=== PATIENT | female | born 1990 | race Caucasian/White ===

== ENCOUNTER 2019-10-20 14:09 | Emergency (ER) | payer OTHER, SELFPAY ==
[2019-10-20 14:22] VITALS: BP 139/79; PULSE 69; RESP 16; TEMP 36.2; O2SAT 100
--- NOTE | 2019-10-20 14:39 | ED.SKABFB ---
HPI - Skin/Abscess/Foreign Bdy General Chief complaint: Skin/Abscess/Foreign Body Stated complaint: Cyst Time Seen by Provider: 10/20/19 14:39 Source: patient and RN notes reviewed Mode of arrival: ambulatory Limitations: no limitations History of Present Illness HPI narrative: This is a 29 years old female presents to the office for an evaluation of painful lesion on vaginal area. She noticed a small bump a week ago and it gets more painful for the last couple days. Pain is worse today that she could barely walk. Denies similar problem in the past. She tried warm compress on affected area; but she could barely put it on because it was too irritated/painful. Denies history MRSA.Denies concerns for STIs. Related Data Allergies Allergy/AdvReac Type Severity Reaction Status Date / Time No Known Allergies Allergy Verified 08/11/18 16:48 Review of Systems Review of Systems: Narrative: CONSTITUTIONAL: Denies fever, chills CARDIOVASCULAR: Denies chest pain RESPIRATORY: Denies dyspnea, cough GASTROINTESTINAL: Denies abdominal pain,vomiting, diarrhea. Reports feeling nausea. GENITOURINARY: Denies urinary symptoms or vaginal discharge SKIN: Reports painful bumps on her vagina MUSCULOSKELETAL: Denies acute joints pain NEUROLOGIC: Denies lightheaded All other systems reviewed are negative, except as documented in HPI. PMFSH Past Medical History Medical History Depression Family History Family History Other Diabetes mellitus Hypertension Social History Social History Smoking status: Never smoker Alcohol intake: never Comments At time of signature, I agree with nursing past medical, surgical, social and family history. There is no relevant family history pertinent to the presenting complaint. Exam Narrative: Exam Narrative: GENERAL: This is a well-nourished, well-developed patient, in no apparent distress. CARDIOVASCULAR: Regular rate and rhythm without murmurs, gallops, or rubs. RESPIRATORY: Clear to auscultation. Breath sounds equal bilaterally. No wheezes, rales, or rhonchi. GASTROINTESTINAL: Abdomen soft, non-tender, nondistended. Bowel sounds are active. No hepato-splenomegaly, or palpable masses. No guarding. 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 NEURO: awake, alert, and oriented to person, place and time. There were no obvious focal neurologic abnormalities. Steady gait Juliet Coma Scale Eye Opening: Spontaneous 4 [place] Coma Scale Motor: Obeys Commands 6 [place] Coma Scale Verbal: Oriented 5 Course Vital Signs Vital signs: Vital Signs Temperature 97.2 F L 10/20/19 14:22 Pulse Rate 69 10/20/19 14:22 Respiratory Rate 16 10/20/19 14:22 Blood Pressure 139/79 10/20/19 14:22 Pulse Oximetry 100 10/20/19 14:22 Temperature 97.2 F L 10/20/19 14:22 Pulse Rate 69 10/20/19 14:22 Respiratory Rate 16 10/20/19 14:22 Blood Pressure 139/79 10/20/19 14:22 Pulse Oximetry 100 10/20/19 14:22 MDM - Skin/Abscess/Foreign Bdy MDM Narrative Medical decision making narrative: Discharge instructions reviewed with patient, as well as provided in writing per nursing staff. The instructions also include specific and strict return/GO TO THE ER as well as f/u information. All questions have been answered, and the patient deny any further questions with discharge and discharge plan. Differential Diagnosis Differential diagnosis: Likely abscess of skin or subcutaneous tissue, cellulitis, insect bites and contact dermatitis Critical Care Time Critical Care Time Critical Care Time: No Discharge Plan Discharge Clinical Impression: Abscess of left Bartholin's gland Patient Disposition: Home, Self-Care Condition:
== END 2019-10-20 14:58 | disposition home or self-care (01) ==
PROVIDERS: Emergency Provider Nurse Practitioner; PCP Emergency Medicine
DX: N75.1 Abscess of Bartholin's gland (principal)
CPT/HCPCS: 99213; G0463

== ENCOUNTER 2019-12-12 09:20 | Outpatient (CLI) | payer OTHER, SELFPAY ==
--- NOTE | ~2019-12-12 | XR_ITS ---
XR foot RT 2V DATE: 12/12/2019 09:41 INDICATION: Right foot pain TECHNIQUE: AP and lateral views COMPARISON: None FINDINGS: There is mild osteophyte is at the first metatarsophalangeal joint, including moderate join t space narrowing, minimal spurring. No fracture or dislocation, periosteal reaction or bone destruction. IMPRESSION: Mild osteoarthritis at first metatarsophalangeal joint Reviewed, dictated and finalized at location A.
--- NOTE | ~2019-12-12 | XR_ITS ---
XR foot LT 2V DATE: 12/12/2019 09:41 INDICATION: Right foot pain. No injury. TECHNIQUE: AP and lateral views COMPARISON: None FINDINGS: No fracture or dislocation, periosteal reaction or bone destruction. Joint spaces are prese rved. IMPRESSION: Negative Reviewed, dictated and finalized at location A. IMPRESSION: Negative
== END 2019-12-12 09:21 | disposition home or self-care (01) ==
LOC: ANHIMG 09:23
PROVIDERS: PCP Emergency Medicine; Visit Provider Emergency Medicine
DX: M79.672 Pain in left foot (principal); M19.071 Primary osteoarthritis, right ankle and foot
CPT/HCPCS: 73620

== ENCOUNTER 2020-02-28 12:23 | Emergency (ER) | payer OTHER, SELFPAY ==
--- NOTE | ~2020-02-28 | XR_ITS ---
EXAMINATION: XR ankle RT 2V DATE: 02/28/2020 12:50 INDICATION: Right ankle deformity post fall down stairs TECHNIQUE: Anteroposterior and lateral views of the affected ankle were obtained. COMPARISON: None. FINDINGS: Comminuted fracture of the distal right fibular metadiaphyseal region with a dominant oblique fractur e plane which exits the medial cortex approximately 3 cm above level of the tibiotalar joint line. Th ere is one cortical width posterior and lateral displacement and 10 degree lateral and 25 degrees pos terior angulation along this fracture plane. There is an additional nondisplaced fracture line extend ing into the more distal metaphyseal region. There is a displaced fracture fragment arising from the lateral aspect of the distal tibia likely an avulsion of the posterior malleolus. No definite fractur e of the medial malleolus however there is significant posterior and lateral subluxation and varus an gulation of the talar dome relative to the tibial plafond consistent with tear of the deltoid ligamen t complex there is prominent anterior widening of the tibiotalar joint space. No fractures and normal alignment and joint spaces in the visualized right forefoot. IMPRESSION: 1. Displaced and angulated Finn type IIIC injury pattern with comminuted, displaced and angulated fr acture of the distal right fibular metadiaphysis, displaced fracture of the posterior malleolus of th e distal tibia and deltoid ligament complex tear without evident medial malleolar fracture. Reviewed, dictated and finalized at location A. CAL LABORATORY TECHNICIAN IMPRESSION: 1. Displaced and angulated Finn type IIIC injury pattern with comminuted, disp laced and angulated fracture of the distal right fibular metadiaphysis, displac ed fracture of the posterior malleolus of the distal tibia and deltoid ligament complex tear without evident medial malleolar fracture.
--- NOTE | ~2020-02-28 | XR_ITS ---
EXAMINATION: XR ankle LT 2V DATE: 02/28/2020 12:49 INDICATION: Left ankle swelling post fall down stairs TECHNIQUE: Anteroposterior and lateral views of the left ankle were obtained. COMPARISON: None. FINDINGS: Alignment is normal. No fracture. Joint spaces are well maintained. Bone island at the talar dome. N o ankle joint effusion. Mild soft tissue swelling about the lateral malleolus. IMPRESSION: 1. No left ankle joint effusion or acute osseous abnormality. Reviewed, dictated and finalized at location A. ESSOR OF GENETICS
--- NOTE | ~2020-02-28 | XR_ITS ---
EXAMINATION: XR ankle RT 2V DATE: 02/28/2020 13:44 INDICATION: Distal right tibia and fibula fractures status post reduction. TECHNIQUE: 2 views of right ankle were obtained. COMPARISON: Right ankle radiographs at 12:39 PM FINDINGS: There is a comminuted fracture of distal fibular diaphysis with proximal medial aspect of t he fracture line 4.8 cm proximal to the level of the tibial plafond. The main distal fracture fragmen t demonstrates 2 mm posterior displacement and 6 degrees anterior angulation. There is a fracture of posterior malleolus in near-anatomic alignment. There is widening of the medial ankle mortise, consis tent with deltoid ligament tear. Joint spaces are normal. Cast material obscures fine bone detail. IMPRESSION: 1. Fractures of distal fibula and posterior malleolus with improvement in alignment. 2. Complete tear of the deltoid ligament. Reviewed, dictated and finalized at location A. UNITY REINVESTMENT ACT OFFICER IMPRESSION: 1. Fractures of distal fibula and posterior malleolus with improvement in align ment. 2. Complete tear of the deltoid ligament.
[2020-02-28 12:33] VITALS: BP 132/90; PULSE 79; RESP 18; O2SAT 99
[2020-02-28] MEDS: SODIUM CHLORIDE 0.9% IV 1,000 ML 999 ML IV CONT (13:04)
[2020-02-28] MEDS: ONDANSETRON INJ 4 MG/2 ML VIAL IV PUSH (13:04)
[2020-02-28] MEDS: MORPHINE SULFATE (*CRX) 4 MG/ML INJ IV PUSH (13:05)
--- NOTE | 2020-02-28 13:14 | ED.LOWEXIN ---
HPI - Extremity Injury (Lower) General Chief Complaint: Extremity Injury, Lower Stated Complaint: broken leg Time Seen by Provider: 02/28/20 12:37 History of Present Illness HPI Narrative: Patient is a 29-year-old female who presents ER with right ankle deformity. She was walking down some steps helping her sister move when she stepped down wrong suffering injury to her ankle. Sudden onset pain with deformity. She reports some tingling but does continue to have sensation. Unable to bear weight. Did not strike her head or lose consciousness. No additional injuries. Related Data Home Medications Medication Instructions Recorded Confirmed meloxicam 15 mg tablet 15 mg PO DAILY 01/29/20 Allergies Allergy/AdvReac Type Severity Reaction Status Date / Time No Known Allergies Allergy Verified 02/28/20 12:36 Review of Systems Constitutional: Constitutional: Denies chills, Denies fever(s) and Denies weakness Musculoskeletal: Musculoskeletal: Reports arthralgias and Reports joint swelling Neurologic: Denies focal weakness and Reports numbness PMFSH Past Medical History Medical History (Updated 02/28/20 @ 14:01 by Santi Knox MD) Depression Family History Family History Other Diabetes mellitus Hypertension Social History Social History Smoking status: Never smoker Alcohol intake: never Exam Narrative: Exam Narrative: GENERAL: Well-appearing, well-nourished, and in no acute distress. HEAD: Normocephalic, atraumatic. HEART: Regular rate and rhythm. No murmur heard. Normal peripheral pulses. EXTREMITIES: Right ankle deformity and swelling. Normal dorsalis pedis pulses and sensation intact. No tenderness about the knee. SKIN: Warm, dry, no rash. NEURO: No focal deficits. Alert and oriented x3. PSYCH: Normal mood and affect. Course Course Emergency Course: Discussed case with Dr. Robbins. He would like patient to follow-up outpatient and he will arrange surgery for her at [facility] has this is a complex type fracture. Patient will be nonweightbearing and will keep her leg elevated. She has been educated about treatment plan and verbalized understanding. Vital Signs Vital signs: Vital Signs Pulse Rate 79 02/28/20 12:33 Respiratory Rate 18 11/27/20 12:33 Blood Pressure 132/90 11/27/20 12:33 Pulse Oximetry 99 02/28/20 12:33 Pulse Rate 79 02/28/20 12:33 Respiratory Rate 18 02/28/20 12:33 Blood Pressure 132/90 02/28/20 12:33 Pulse Oximetry 99 02/28/20 12:33 Procedures Orthopedic Fracture Reduction Fracture #1: Fracture Reduction date: 02/28/20 Fracture Reduction time: 13:20 Side: right Fracture Reduction Location: other (ankle) Pre-Procedure Neuro Vascular Exam: normal Technique: direct manipulation Post-reduction neuro exam: intact Post-reduction vascular exam: intact Splint Applied: Yes Patient Tolerated Procedure: well Orthopedic Splinting/Casting Injury #1: Splinting/Casting Date: 02/28/20 Splinting/Casting Time: 13:24 Side: right Lower Extremity Injury Location: ankle Splint: customized in ED OCL: stirrup Pre-Procedure Neuro Vascular Exam: normal Post-Procedure Neuro Vascular Exam: normal MDM - Extremity Injury (Lower) Imaging Data My impression: ITS Impressions Ankle X-Ray 02/28/20 13:12 IMPRESSION: 1. No left ankle joint effusion or acute osseous abnormality. Ankle X-Ray 02/28/20 13:14 IMPRESSION: 1. Displaced and angulated Finn type IIIC injury pattern with comminuted, displaced and angulated fracture of the distal right fibular metadiaphysis, displaced fracture of the posterior malleolus of the distal tibia and deltoid ligament complex tear without evident medial malleolar fracture. Discharge Plan Di
[2020-02-28] MEDS: HYDROmorphone HCL INJ (*CRX) 1 MG/ML SYR IV PUSH (13:26)
== END 2020-02-28 14:56 | disposition home or self-care (01) ==
PROVIDERS: Emergency Provider Emergency Medicine; PCP Emergency Medicine
DX: S89.391A Other physeal fracture of lower end of right fibula, initial encounter for closed fracture (principal); S82.391A Other fracture of lower end of right tibia, initial encounter for closed fracture; X50.9XXA Other and unspecified overexertion or strenuous movements or postures, initial encounter
CPT/HCPCS: 27788; 27825; 73600; 96365; 96366; 96375; 99285; J0131; J1170; J2270; J2405; J7030

== ENCOUNTER 2020-03-04 01:04 | Outpatient (CLI) | payer OTHER, SELFPAY ==
[2020-03-04 18:21] LABS: SARS-CoV-2 RNA PCR Negative
== END 2020-03-04 01:05 | disposition home or self-care (01) ==
LOC: ANHCOVIDDT 01:06
PROVIDERS: PCP Emergency Medicine; Visit Provider Orthopaedic Surgery
DX: Z01.818 Encounter for other preprocedural examination (principal); Z20.828 Contact with and (suspected) exposure to other viral communicable diseases
CPT/HCPCS: 87635; C9803; U0003

== ENCOUNTER 2020-03-05 01:24 | Day surgery (SDC) | payer OTHER, SELFPAY ==
[2020-03-03 13:05] VITALS: BMI 33.8
[2020-03-05] VITALS (10 sets, daily range): BP systolic 133–159; BP diastolic 72–98; PULSE 75–92; RESP 14–20; TEMP 36.7–36.9; O2SAT 99–100
--- NOTE | ~2020-03-05 | XR_ITS ---
EXAMINATION: XR surgery orthopedic DATE: 03/05/2020 15:22 INDICATION: ORIF right ankle fracture TECHNIQUE: 3 fluoroscopic spot images of the right ankle were obtained during procedure performed by Dr. Robbins. Radiologist was not present for the imaging or procedure. The amount of fluoroscopy time us ed during this procedure was 0.7 minutes. COMPARISON: 02/28/2020 FINDINGS: Interval open reduction and internal fixation of the wrist noted comminuted fractures of the distal r ight fibular metadiaphysis with lateral plate and screws. This includes a syndesmotic fixation device with anchoring screws at the lateral side of the distal right tibial metaphysis. Alignment is near-a natomic with one cortical width residual posterior displacement and negligible anterior angulation of the fibular fracture and with a congruent ankle mortise. No other fractures identified. IMPRESSION: 1. Near-anatomic alignment post open reduction and internal fixation of a comminuted extra articular fracture of the distal right fibula with associated syndesmotic fixation. Reviewed, dictated and finalized at location A. MAKER IMPRESSION: 1. Near-anatomic alignment post open reduction and internal fixation of a commi nuted extra articular fracture of the distal right fibula with associated synde smotic fixation.
[2020-03-05] MEDS: LACTATED RINGERS 1,000 ML 30 ML IV CONT ×2 (12:56→15:38)
[2020-03-05] MEDS: ACETAMINOPHEN 500 MG TABLET 1000 MG PO (13:10)
[2020-03-05] MEDS: KETOROLAC 15 MG/ML VIAL (*BKC) IV PUSH (13:11)
--- NOTE | 2020-03-05 13:13 | SUR.PREOP ---
1313-DR. CHIRINOS AT [facility], [facility] LEAVE SPLINT/DONATO ON TO OR.
--- NOTE | 2020-03-05 13:27 | WPDANESEPPF ---
Anes - Initial Pre Proc Eval Procedure: Operation Date: 03/05/20 14:00 Proposed Procedures p Open Reduction Internal Fixation Right Ankle Fracture - Redd Robbins MD Date/Time: 03/05/20 13:27 Surgeon: Redd Robbins MD Pre Op Diagnosis: Right Ankle Fracture Patient Data Age: 29 Gender: F Height: 5 ft 11 in Weight: 110 kg Allergies Allergy/AdvReac Type Severity Reaction Status Date / Time No Known Allergies Allergy Verified 03/05/20 12:53 Home Medications Medication Instructions Recorded Confirmed Type alprazolam 0.5 mg tablet 0.5 mg PO BID PRN #30 tablet 12/02/19 03/05/20 Rx bupropion HCl 150 mg 24 hr tablet, 150 mg PO QAM #30 tablet 12/02/19 03/05/20 Rx extended release hydrocortisone 2.5 % topical cream 1 applic PA BID-TID PRN 7 Days #30 01/29/20 03/03/20 Rx with perineal applicator g meloxicam 15 mg tablet 15 mg PO DAILY 01/29/20 03/05/20 History hydrocodone-acetaminophen 1 tablet PO Q6H PRN #20 tablet 02/28/20 03/05/20 Rx sertraline 100 mg PO QAM 03/03/20 03/05/20 History Patient hx anesthesia problems: none Family hx anesthesia problems: none PMFSH Past Medical History Medical History BMI 37.0-37.9, adult Depression Surgical History Surgical History H/O: section H/O: hysterectomy History of cholecystectomy Family History Family History Other Diabetes mellitus Heart disease Hypertension Social History Social History Smoking status: Never smoker Alcohol intake: current Drinks per week: 2 Substance use: never Living arrangements: alone Gender identity (if verbalized by the patient): Female Spiritual care concerns: No Anes - Eval Final PreProcedure Day of Procedure 03/05/20 13:27 Patient weight: obese Heart: regular rate and rhythm Lungs: clear to auscultation Airway: Mallampati scale class II Neurological: alert and oriented Last oral intake: >/= 8 hours ASA classification: II Emergent: no Anesthetic plan: proceed Anesthesia type and monitoring: general LMA and standard monitoring Informed Consent: The patient's anesthetic plan and its attendant risks and benefits were discussed with the patient/family/POA. Questions were solicited and answers provided to the satisfaction of the patient/family/POA.
--- NOTE | 2020-03-05 13:31 | WPDHPUPDATE1 ---
History and Physical Update Update Date/Time: 03/05/20 13:31 History and Physical has been reviewed, including an updated exam of the patient. There are NO changes in the patient's condition. Risks, benefits, and alternatives have been discussed and questions answered. Patient agrees to proceed with procedure.
--- NOTE | 2020-03-05 13:44 | WPDANESPNB ---
Anes - Peripheral Nerve Block Date/Time: 03/05/20 13:44 I have discussed with the patient/family/POA the placement of a peripheral nerve block for post-operative pain management, including associated risks, benefits, complications, and side effects. Alternative methods of post-operative analgesia were detailed. Questions were solicited and answers provided to the satisfaction of the patient/family/POA. Time-Out: A pre-procedural Time-Out was completed immediately before starting the procedure and confirmed: Patient Identification, Site, Procedure, Patient Position and the Availability of Requisite Equipment. Clinical Indications: Acute post-operative pain management requested by the operative surgeon. Nerve Block Insertion Note Anes-nerve block: posterior fossa sciatic (lateral popliteal) right and other (saphenous) Patient position: supine Skin prep: chlorhexidine Needle: 22 gauge, stimulating, insulated echogenic needle. Needle length: 120 mm Technique: nerve stimulation lost at (mA) (0.5) Injectate: bupivacaine 0.5% with epi 5 mcg/ml (23 cc sciatic, 7 cc popliteal) Observations: tolerated well Complications: none Procedure start time:: 1325 Procedure end time:: 7
[2020-03-05] MEDS: ceFAZolin 2 GM/D5W 50 ML 2 GM/50 ML BAG IVPB (13:48)
--- NOTE | 2020-03-05 15:56 | PM.PROC ---
Procedure Note - Detailed Date of procedure: 03/05/20 Pre-op diagnosis: Right Ankle Fracture Finn C lateral malleolus fracture with syndesmotic disruption right ankle Post-op diagnosis: same Procedure performed: ORIF right distal fibular shaft fracture with syndesmotic stabilization. Description of procedure: The patient was identified and the proper site identified. She was taken to the operating room after the anesthesia team performed a right lower extremity block. She was positioned on the operating table taking care to pad her torso and extremities. After general anesthetic induction and intubation, a nonsterile tourniquet was placed high on the right thigh. The right lower extremity was prepped and draped in usual sterile fashion. The extremity was exsanguinated and the tourniquet inflated to 300 mmHg remaining up for about 75 minutes. A longitudinal incision was made over the distal fibula. Subcutaneous tissue was dissected sharply full thickness down to the fracture site which was easily identified. The fracture was exposed and cleared of debris. Of note there was quite a bit of soft tissue stripping anteriorly over the tibia. With fluoroscopic assistance the fracture was able to be brought back out to length and held in a reduced position. Because of the fragmentation, this was provisionally stabilized using a 2.0 screw from the mini fragment set. Then a six hole lateral locking ankle plate was contoured to fit the fibular shaft securing it proximally and distally with locking screws giving a nice stabilization to virtually anatomic reduction. The distal screws were inserted under fluoroscopic control to ensure the joint was not penetrated. Next while holding the syndesmosis reduced with a pelvic reduction clamp and with the foot in a neutral to slightly dorsiflexed position, the fibulink device was inserted and tensioned appropriately to give nice stable syndesmosis. This was assessed fluoroscopically. Overall hardware placement was assessed fluoroscopically on the AP, mortise and lateral views and noted to be satisfactory. Talus was reduced in the mortise and the syndesmosis was reduced as well. The wound was irrigated with sterile saline solution. The subcutaneous tissue was reapproximated with three 0 Monocryl suture and then a two of strata fix and conchita were used for the skin. Small puncture made over the medial malleolus was closed with a staple. Sterile dressing was applied and the tourniquet was released. A well-padded stirrup type ankle splint was fashioned. She tolerated the procedure well. She was awakened, extubated, transferred back to a cart taken recovery area in stable condition. There were no known intraoperative complications. Estimated blood loss was about 10 mL. She received perioperative antibiotics. Anesthesia: GLMA Surgeon: Redd Robbins MD Conservation Enforcement Officer: Rafal Martin Estimated blood loss (mL): 10 Tourniquet time (min): 75 Drains: No Packing: No Pathology: none sent Complications: No immediate complications Condition: stable Disposition: PACU
[2020-03-05] MEDS: fentaNYL CITRATE INJ (*CRX) 100 MCG/2 ML VIAL 25 MCG IV PUSH ×2 (16:40→16:43)
--- NOTE | 2020-03-05 16:43 | SUR.PHASEI ---
1635; PT C/O PAIN TO UPPER RT THIGH. RUBBING RT THIGH WHERE OR TOURNIQUET CARPIO ARE. SKIN NORMAL. P,W,D IN THAT AREA.
--- NOTE | 2020-03-05 16:51 | SUR.PHASEI ---
PT AWAKE, STATES RT THIGH MUCH BETTER NOW AT 3/10. READY TO SIT IN RECLINER.
== END 2020-03-05 17:38 | disposition home or self-care (01) ==
PROVIDERS: PCP Emergency Medicine; Visit Provider Orthopaedic Surgery
PROC: (CPT 27829; principal; 2020-03-05 14:00)
DX: S82.61XA Displaced fracture of lateral malleolus of right fibula, initial encounter for closed fracture (principal); S93.431A Sprain of tibiofibular ligament of right ankle, initial encounter; W19.XXXA Unspecified fall, initial encounter; G89.18 Other acute postprocedural pain; F32.9 Major depressive disorder, single episode, unspecified; E66.9 Obesity, unspecified; Z68.35 Body mass index [BMI] 35.0-35.9, adult
CPT/HCPCS: 27829; 27792; 64450; 64445; A9270; C1713; J0690; J1100; J1885; J2250; J2405; J2704; J3010; J7120

== ENCOUNTER 2020-03-06 10:57 | Emergency (ER) | payer OTHER, SELFPAY ==
[2020-03-06 11:25] VITALS: BP 158/90; PULSE 82; RESP 18; TEMP 37.1; O2SAT 99
--- NOTE | 2020-03-06 12:42 | ED.LOWEXIN ---
HPI - Extremity Injury (Lower) General Chief Complaint: Extremity Injury, Lower Stated Complaint: foot post op swelling, reddness Time Seen by Provider: 03/06/20 12:16 Source: patient Mode of arrival: wheelchair Limitations: no limitations History of Present Illness HPI Narrative: Patient is a 29-year-old female complaining of right lower extremity pain, ankle area where she had the surgery, that started today. Patient denies any calf pain or swelling. Patient denies any increased swelling or redness of her right lower extremity. Patient had ankle surgery yesterday done by Dr. Robbins. I discussed the case with Dr. Robbins, he strongly advised not to take the dressing off, and patient can follow-up with him. Patient denies any chest pain, shortness of breath, fever or chills. Related Data Home Medications Medication Instructions Recorded Confirmed meloxicam 15 mg tablet 15 mg PO DAILY 01/29/20 03/05/20 sertraline 100 mg PO QAM 03/03/20 03/05/20 Allergies Allergy/AdvReac Type Severity Reaction Status Date / Time No Known Allergies Allergy Verified 03/06/20 11:27 Review of Systems Review of Systems: All systems reviewed & are unremarkable except as noted in HPI and below Constitutional: Constitutional: Denies body ache(s), Denies chills, Denies excessive sweating, Denies fatigue, Denies fever(s), Denies headache(s), Denies lethargy, Denies malaise, Denies weakness and Denies weight loss Eyes: Eyes: Denies blurry vision, Denies change in vision and Denies loss of vision ENT: Denies dizziness, Denies ear discharge, Denies headache(s), Denies lip swelling, Denies epistaxis, Denies nasal congestion, Denies neck pain, Denies throat swelling and Denies tongue swelling Cardiovascular: Cardiovascular: Denies chest pain, Denies chest pain at rest, Denies chest pain with activity, Denies diaphoresis, Denies rapid heart rate, Denies edema, Denies irregular heart rhythm, Denies lightheadedness, Denies palpitations, Denies dyspnea and Denies dyspnea on exertion Respiratory: Respiratory: Denies chest congestion, Denies cough, Denies hemoptysis, Denies dyspnea and Denies dyspnea on exertion Gastrointestinal: Gastrointestinal: Denies abdominal pain, Denies melena, Denies hematochezia, Denies diarrhea, Denies nausea, Denies vomiting and Denies hematemesis Musculoskeletal: Musculoskeletal: Denies deformity, Denies neck pain and Denies numbness Neurologic: Denies Abnormal speech present, Denies abnormal gait, Denies confusion, Denies dizziness, Denies headache(s), Denies focal weakness, Denies loss of vision, Denies numbness, Denies Other visual disturbances, Denies Sensory deficit (Neuro) and Denies weakness Psychiatric: Psychiatric: Denies confusion, Denies depression, Denies auditory hallucinations, Denies homicidal ideation and Denies suicidal ideation Endocrine: Endocrine: Denies cold intolerance, Denies excessive sweating, Denies fatigue, Denies heat intolerance and Denies palpitations Hematologic/Lymphatic: Hematologic/Lymphatic: Denies easy bleeding and Denies easy bruising Allergic/Immunologic: Allergic/Immunologic: Denies lip swelling, Denies throat swelling and Denies tongue swelling PMFSH Past Medical History Medical History BMI 37.0-37.9, adult Depression Surgical History Surgical History H/O: section H/O: hysterectomy History of cholecystectomy Family History Family History Other Diabetes mellitus Heart disease Hypertension Social History Social History Smoking status: Never smoker Alcohol intake: current Drinks per week: 2 Substance use: never Gender identity (if verbalized by the patient): Female Spiritual care concerns: No Exam Const: General: cooperative, healthy appear
[2020-03-06 15:00] VITALS: BP 154/95; PULSE 80; RESP 16; O2SAT 100
== END 2020-03-06 15:00 | disposition home or self-care (01) ==
PROVIDERS: Emergency Provider Emergency Medicine; PCP Emergency Medicine
DX: G89.18 Other acute postprocedural pain (principal); M25.571 Pain in right ankle and joints of right foot; F32.9 Major depressive disorder, single episode, unspecified
CPT/HCPCS: 99281

== ENCOUNTER 2020-06-17 11:00 | Outpatient (RCR) | payer OTHER, SELFPAY ==
--- NOTE | 2020-05-14 14:26 | PTOPEVAL ---
Thank you for referring Guillermo Elizabeth to [facility].? The patient is scheduled to be seen for therapy? 2 x/week for 4 weeks. Please review, sign, date and return this plan of care LEXIS. I agree with and certify that the following plan of care is medically necessary. Referring Physician Date Attending Provider: Redd Robbins MD Physical Therapy Evaluation Problem Diagnosis right fibula fracture Onset 02/27/21 Cause missed a step Additional Evaluation Detail s/p ORIF 03/05/20 She has been wearing a boot on the left foot since 12/21. DX with plantar fasciitis 11/20. She has not returned to the MD for her left foot since initial DX. Subjective Information She missed a step landing hard Query Text:As Reported By Patient/ on her right ankle causing a Family snap of the ankle. Following surgery she was NWB for 8 wk using a AD. She reports limitations with prolonged sitting and standing and walking activities. 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 Denies problems with going to the store. She is not driving due to has not removed the right boot yet. She is currently staying with her mom with only a few steps to enter. She is not working outside of the house. 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 Pain Assessment Right Ankle(s) Reported Pain Level 7 Pain Description Aching Pain Frequency Chronic,Continuous Lowest Pain Intensity 4 Greatest Pain Intensity 9 Pain Aggravating Factors Prolonged Position,Sitting, Walking,Weight Bearing/ Standing Pain Behaviors Anxious Lower Extremity Range of Motion Ankle/Foot Range of Motion Left Ankle Dorsiflexion With Knee Extension 4 Range of Motion - Active Ankle Plantarflexion Range of Motion - 45 Active Query Text: Ankle Eversion Range of Motion - Active 25 Ankle Inversion Range of Motion - Active 33 Right Ankle Dorsiflexion With Knee Extension -5
--- NOTE | 2020-05-19 13:27 | PCPTNOTE ---
Patient did not show up for scheduled appointment this date. She states she forget about her appt today. She plans to be here on .
--- NOTE | 2020-06-09 11:24 | PCPTNOTE ---
Patient called & cancelled scheduled appointment this date due to not having a sitters.
--- NOTE | 2020-06-11 08:34 | PCPTNOTE ---
Patient called & cancelled scheduled appointment this date due to kids back in school and had to reschedule visit.
--- NOTE | 2020-06-17 11:52 | PTOPEVAL ---
Thank you for referring Guillermo Elizabeth to [facility].? Pt has been seen for 7 therapy visit to address impairments related to right ankle injury. She has achieved all her therapy goals at this time. Updated information on function in the following therapy note. D/C skilled therapy services at this time. Please review, sign, date and return this Discharge summary LEXIS. I agree with and certify that the following plan of care is medically necessary. Referring Physician Date Admitting Provider: Attending Provider: Redd Robbins MD Physical Therapy Progress Note/Discharge Note Diagnosis right fibula fracture Onset 02/27/21 Cause missed a step Additional Evaluation Detail s/p ORIF 03/05/20 She has been wearing a boot on the left foot since 12/21. DX with plantar fasciitis 11/20. Subjective Information She denies any problems with Query Text:As Reported By Patient/ prolonged sitting and standing Family and walking activities. She has been exercise videos at home without problems. 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 She does feel like her balance is slightly off still. Pain Assessment Timing of Pain Assessment Pain Scale Used Numeric (1 - 10) Self Report Pain Assessment Right Ankle(s) Reported Pain Level 0 Greatest Pain Intensity 0 Lower Extremity Range of Motion Ankle/Foot Range of Motion Right Ankle Dorsiflexion With Knee Extension 2 Range of Motion - Active Ankle Dorsiflexion With Knee Extension 5 Range of Motion - Passive Ankle Plantarflexion Range of Motion - 52 Active Query Text: Ankle Eversion Range of Motion - Active 20 Ankle Inversion Range of Motion - Active 30 Lower Extremity Muscle Strength Testing Hip Strength Right Hip Flexion Strength 5 Normal Hip Extension Strength 4+ Good + Hip Abduction Strength 4 Good Knee Strength Right Knee Flexion Strength 5 Normal Knee Extension Strength 5 Normal Ankle Strength Right Ankle Dorsiflexion Strength 5 Normal Ankle Plantarflexion Strength 4 Good Ankle Eversion Strength 5 Normal Ankle Inversion Strength 5 Normal Ankle Strength Comments zane heel raises x 20 reps with full range Palpation Assessment Palpation no tenderness on medial/ lateral malleoli region, gastroc region slight tenderness over healed incision Special T
== END 2020-06-18 10:19 | disposition home or self-care (01) ==
LOC: ANHPT 11:00
PROVIDERS: PCP Emergency Medicine; Visit Provider Orthopaedic Surgery
DX: Z47.89 Encounter for other orthopedic aftercare (principal); Z87.81 Personal history of (healed) traumatic fracture
CPT/HCPCS: 97110; 97112; 97140; 97162

== ENCOUNTER 2020-09-06 09:50 | Outpatient (CLI) | payer OTHER, SELFPAY ==
--- NOTE | ~2020-09-06 | CT_ITS ---
EXAMINATION: CT ankle RT wo con DATE: 09/06/2020 10:08 INDICATION: Right ankle sprain. TECHNIQUE: Computed tomography (CT) of the right ankle was performed without intravenous contrast. Au tomated exposure control and iterative reconstruction technique were employed. The dose-length produc t was 414.59 mGy-cm. COMPARISON: Right ankle radiographs 09/02/2020, 03/05/20, 02/28/20 FINDINGS: There is a healed comminuted fracture distal fibula with fixation with lateral plate and sc rews and interfragmentary screw. The Fibulink syndesmosis repair system is noted. When compared to th e postoperative radiographs, there is widening of the syndesmosis and widening of the medial ankle mo rtise. There is an fracture at the posterior malleolus laterally with nonunion. There is a healed fra cture of the posterior malleolus medially. There is mild ankle joint osteoarthritis. There is a 2 mm loose body in the ankle joint anterior recess. There is mild mild osteoarthritis of some of the midfo ot joints characterized by tiny osteophytes. IMPRESSION: 1. Widening of the tibiofibular syndesmosis and medial ankle mortise when compared to the postoperati ve radiographs. 2. 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 3. Healed fracture of distal fibula with internal fixation. 4. Mild ankle joint osteoarthritis. Reviewed, dictated and finalized at location A. IMPRESSION: 1. Widening of the tibiofibular syndesmosis and medial ankle mortise when adam red to the postoperative radiographs. 2. Fracture of posterior malleolus with nonunion of a fracture component latera lly. 3. Healed fracture of distal fibula with internal fixation. 4. Mild ankle joint osteoarthritis.
== END 2020-09-06 09:51 | disposition home or self-care (01) ==
PROVIDERS: PCP Emergency Medicine; Visit Provider Orthopaedic Surgery
DX: S93.431A Sprain of tibiofibular ligament of right ankle, initial encounter (principal); X58.XXXA Exposure to other specified factors, initial encounter; M19.071 Primary osteoarthritis, right ankle and foot
CPT/HCPCS: 73700

== ENCOUNTER → 2020-10-09 02:28 | Outpatient (CLI) | payer SELFPAY ==
[2020-10-09 17:20] LABS: SARS-CoV-2 RNA PCR Negative
== END ==
PROVIDERS: PCP Emergency Medicine; Visit Provider Orthopaedic Surgery
DX: Z01.812 Encounter for preprocedural laboratory examination (principal); Z20.822 Contact with and (suspected) exposure to COVID-19
CPT/HCPCS: C9803; U0003; U0005

== ENCOUNTER 2020-10-12 00:41 | Day surgery (SDC) | payer OTHER, SELFPAY ==
[2020-10-06 15:15] VITALS: BMI 37.7
--- NOTE | 2020-10-08 13:58 | PM.IMHP ---
H&P: HPI History of Present Illness Date/Time: 10/08/20 13:58 Chief Complaint: Right ankle pain, injury Narrative: 30-year-old woman right fibular fracture and syndesmosis disruption. Underwent open reduction internal fixation. Failure of hardware and late displacement of syndesmosis. Patient with pain and instability the ankle. Presents now for operative treatment. Review of Systems Review of Systems: All systems reviewed & are unremarkable except as noted in HPI and below Constitutional: Constitutional: Denies body ache(s), Denies chills, Denies excessive sweating, Denies fatigue, Denies fever(s), Denies headache(s), Denies lethargy, Denies malaise, Denies weakness and Denies weight loss Eyes: Eyes: Denies blurry vision, Denies change in vision and Denies loss of vision ENT: Denies dizziness, Denies ear discharge, Denies headache(s), Denies lip swelling, Denies epistaxis, Denies nasal congestion, Denies neck pain, Denies throat swelling and Denies tongue swelling Cardiovascular: Cardiovascular: Denies chest pain, Denies chest pain at rest, Denies chest pain with activity, Denies diaphoresis, Denies rapid heart rate, Denies edema, Denies irregular heart rhythm, Denies lightheadedness, Denies palpitations, Denies dyspnea and Denies dyspnea on exertion Respiratory: Respiratory: Denies chest congestion, Denies cough, Denies hemoptysis, Denies dyspnea and Denies dyspnea on exertion Gastrointestinal: Gastrointestinal: Denies abdominal pain, Denies melena, Denies hematochezia, Denies diarrhea, Denies nausea, Denies vomiting and Denies hematemesis Musculoskeletal: Musculoskeletal: Denies deformity, Denies neck pain and Denies numbness Neurologic: Denies Abnormal speech present, Denies abnormal gait, Denies confusion, Denies dizziness, Denies headache(s), Denies focal weakness, Denies loss of vision, Denies numbness, Denies Other visual disturbances, Denies Sensory deficit (Neuro) and Denies weakness Psychiatric: Psychiatric: Denies confusion, Denies depression, Denies auditory hallucinations, Denies homicidal ideation and Denies suicidal ideation Endocrine: Endocrine: Denies cold intolerance, Denies excessive sweating, Denies fatigue, Denies heat intolerance and Denies palpitations Hematologic/Lymphatic: Hematologic/Lymphatic: Denies easy bleeding and Denies easy bruising Allergic/Immunologic: Allergic/Immunologic: Denies lip swelling, Denies throat swelling and Denies tongue swelling [facility] Past Medical History Medical History Ankle syndesmosis disruption BMI 37.0-37.9, adult Depression Fracture of lateral malleolus of right fibula at syndesmosis Tear of deltoid ligament of right ankle Wears glasses Surgical History Surgical History H/O: section H/O: hysterectomy History of cholecystectomy History of fracture of right ankle ORIF right distal fibula with syndesmotic stabilization March 2020 Family History Family History Other Depression Diabetes mellitus Heart disease Hypertension Skin cancer Social History Social History Smoking status: Never smoker Alcohol intake: current Drinks per week: 2 Alcohol use details: occasional Substance use: never Gender identity (if verbalized by the patient): Female Spiritual care concerns: No Meds Home Medications and Allergies Home Medications Medication Instructions Recorded Confirmed Type sertraline 100 mg PO QAM 03/03/20 10/06/20 History bupropion HCl 150 mg 24 hr tablet, See Rx Instructions .ROUTE 09/28/20 10/06/20 Rx extended release .COMPLEX #30 tablet Allergies Allergy/AdvReac Type Severity Reaction Status Date / Time No Known Allergies Allergy Verified 10/06/20 15:15 Exam Const: General: No confu
--- NOTE | 2020-10-09 13:52 | WPDANESEPPF ---
Anes - Initial Pre Proc Eval Procedure: Operation Date: 10/12/20 07:30 Proposed Procedures p Open Reduction Internal Fixation Right Syndesmosis and Deltoid Ligaments, Removal Hardware - Vijay Duggan MD Date/Time: 10/09/20 13:52 Surgeon: Vijay Duggan MD Pre Op Diagnosis: right syndesmosis, deltoid disruption Patient Data Age: 30 Gender: F Height: 1.8 m Weight: 122.7 kg Allergies Allergy/AdvReac Type Severity Reaction Status Date / Time No Known Allergies Allergy Verified 10/06/20 15:15 Home Medications Medication Instructions Recorded Confirmed Type sertraline 100 mg PO QAM 03/03/20 10/12/20 History bupropion HCl 150 mg 24 hr tablet, See Rx Instructions .ROUTE 09/28/20 10/12/20 Rx extended release .COMPLEX #30 tablet Patient hx anesthesia problems: none Family hx anesthesia problems: none PMFSH Past Medical History Medical History Ankle syndesmosis disruption BMI 37.0-37.9, adult Depression Fracture of lateral malleolus of right fibula at syndesmosis Tear of deltoid ligament of right ankle Wears glasses Surgical History Surgical History H/O: section H/O: hysterectomy History of cholecystectomy History of fracture of right ankle ORIF right distal fibula with syndesmotic stabilization March 2020 Family History Family History Other Depression Diabetes mellitus Heart disease Hypertension Skin cancer Social History Social History Smoking status: Never smoker Alcohol intake: current Drinks per week: 2 Alcohol use details: occasional Substance use: never Living arrangements: alone Gender identity (if verbalized by the patient): Female Spiritual care concerns: No Anes - Eval Final PreProcedure Day of Procedure 10/09/20 13:52 Patient weight: obese Heart: regular rate and rhythm Lungs: clear to auscultation Airway: Mallampati scale class II Neurological: alert and oriented Last oral intake: >/= 8 hours ASA classification: II Emergent: no Anesthetic plan: proceed Anesthesia type and monitoring: general LMA and standard monitoring Informed Consent: The patient's anesthetic plan and its attendant risks and benefits were discussed with the patient/family/POA. Questions were solicited and answers provided to the satisfaction of the patient/family/POA.
[2020-10-12] VITALS (12 sets, daily range): BP systolic 126–153; BP diastolic 72–90; PULSE 69–112; RESP 16–20; TEMP 36.4–37.3; O2SAT 93–100
--- NOTE | ~2020-10-12 | XR_ITS ---
EXAMINATION: XR surgery orthopedic DATE: 10/12/2020 10:41 INDICATION: Removal of instrumentation for internal fixation of a prior right ankle fracture. TECHNIQUE: 5 fluoroscopic images of the right ankle were obtained during procedure performed by Dr. Marilyn jolly. Radiologist was not present for the imaging or procedure. The amount of fluoroscopy time used during this procedure was 3.9 minutes. COMPARISON: Radiographs dated 09/02/[address] dated 09/06/2020 FINDINGS: Initial blood bank technician image demonstrates lateral plate and screw fixation spanning the healed distal fibular fracture. There has been prior syndesmotic fixation with anchoring screw in the distal tibia. This is likely failed given the persistent slight lateral subluxation of the talar dome with respect to the tibial plafond and with widening of the medial clear space which is new since the initial post fixati on imaging performed on 03/05/2020 . Subsequent images demonstrate removal of the prior syndesmotic fi xation device and reduction of the prior lateral subluxation of the talar dome. New syndesmotic fixat ion with a screw spanning the lateral malleolus and the distal tibia as well as placement of a tightr ope type syndesmotic fixation with metallic buttons both the medial and lateral sides of a lucent jhony idris spanning the distal tibia and fibula. Post revision of the syndesmotic fixation the ankle mortise appears congruent. No acute fractures. Expected small amount of postoperative soft tissue and intra- articular gas. IMPRESSION: 1. Fluoroscopy utilized during revision of a syndesmotic fixation with reduction to near-anatomic ali gnment. See procedure note for further detail. Reviewed, dictated and finalized at location A. IMPRESSION: 1. Fluoroscopy utilized during revision of a syndesmotic fixation with reductio n to near-anatomic alignment. See procedure note for further detail.
[2020-10-12] MEDS: ACETAMINOPHEN 500 MG TABLET 1000 MG PO (07:02)
[2020-10-12] MEDS: KETOROLAC 15 MG/ML VIAL (*BKC) IV PUSH (07:08)
[2020-10-12] MEDS: LACTATED RINGERS 1,000 ML 30 ML IV CONT ×2 (07:08→11:12)
--- NOTE | 2020-10-12 07:19 | WPDHPUPDATE1 ---
History and Physical Update Update Date/Time: 10/12/20 07:19 History and Physical has been reviewed, including an updated exam of the patient. There are NO changes in the patient's condition. Covid test negative. Risks, benefits, and alternatives have been discussed and questions answered. Patient agrees to proceed with procedure.
[2020-10-12] MEDS: ceFAZolin 3 GM/D5W 100 ML 100 ML IVPB (07:32)
[2020-10-12] MEDS: BUPIVACAINE/EPINEPHRINE 0.5% 50 ML VIAL (08:32)
[2020-10-12] MEDS: HYDROmorphone HCL INJ (*CRX) 1 MG/ML SYR 0.25 MG IV PUSH ×4 (11:25→11:40)
--- NOTE | 2020-10-12 11:36 | W.PM.PROC2 ---
Procedure Note - Detailed Date of Procedure 10/12/20 Pre-op Diagnosis right syndesmosis, deltoid disruption, retained failed internal hardware Post-op Diagnosis same Procedure Performed open reduction internal fixation of right syndesmosis distal tibia fibula, open repair of deltoid ligament, removal of hardware, deep right ankle. Surgeon Vijay Duggan MD Insurance Office Manager imaging assistant Anesthesia general Indications 30-year-old woman who sustained a right ankle fracture dislocation involving injury to the distal syndesmosis and deltoid ligaments. Patient has gone on to heal the fibular fracture with open reduction internal fixation. She has had subluxation of the ankle mortise, instability and pain. She presents now for operative treatment. On radiographs and CT scan the previous internal fixation is noted to have failed at the syndesmosis. Description of Procedure Patient identified the preoperative holding area. Informed consent given. The operative extremity was marked. Patient received intravenous antibiotics. She is brought to the operating room she underwent a general anesthetic by the Anesthesia Team. Positioned supine in the operating room table. A time-out was performed confirming the patient, site of surgery in the plan. Right lower extremity then prepped draped usual sterile surgical fashion using a ChloraPrep skin solution. Previous lateral incision was utilized. A new medial incision was mapped out on the skin. Foot and ankle were then exsanguinated and a thigh tourniquet was inflated to 250 mmHg. Fifteen blade knife used to make a incision laterally using the lateral incision over the distal fibula. Hemostasis controlled electrocautery. Dissection carried through the fascia to the lateral fibula. The screw removal device was used for the syndesmosis fixation. The most superficial cap was able to be removed but the deeper portion was unable to be removed. Dissection was then carried over the top of the fibula into the syndesmosis area. The syndesmosis fixation was then able to be visualized and was removed with a clamp as well as a screwdriver to remove the tibial portion. Wound was thoroughly irrigated. With exposure of the syndesmosis the fibula was then able to be reduced and clamped into place. Fixation was then achieved with a Arthrex tight rope syndesmosis fixation device. A 2.7 mm fully-threaded locking screw was used distally for supplemental fixation through the plate. Remaining plate and screw fixation for the fibula was left in place. Wound was thoroughly irrigated antibiotic solution and the fascia was repaired with 0 Vicryl interrupted suture. Subcutaneous tissue repaired with 2 Vicryl and 3 0 Monocryl interrupted suture skin repaired with conchita. Longitudinal incision then made at the medial malleolus. Hemostasis controlled electrocautery. Fascia incised line with skin incision. There is noted to be deltoid ligament rupture off of the medial malleolus. The medial ankle mortise was then able to be visualized. Thorough irrigation of the ankle joint was done. There was some scar tissue and synovitis in the medial gutter which was removed with rongeur. Deltoid ligament and repaired with the Arthrex 2.0 mm fiber tack. Two of these were placed in the medial malleolus using fluoroscopy for image intensification for positioning purposes. Suture was then passed through the deltoid and this was repaired back to the medial malleolus. Good fixation was noted. Fluoroscopy was used confirm final reduction of the ankle mortise and placement of the hardware which was noted to be good. External rotation abduction stress views of the ankle was done in the ankle mortise was noted to be stable. Medial wound was irrigated closed with 0 Vicryl and 2 Vicryl interrupted suture followed by 3 0 Monocryl interrupted suture for the subcutaneous tissue and conchita for the skin. tourniquet was released, no bleeding was noted. Sterile d
--- NOTE | 2020-10-12 11:55 | SUR.PHASEI ---
1149 - dr. mata called and aware of pt's c/o pain. aware of medications given for pain control. dr. mata stated to check with anesthesia for pain control needs 1150 - dr. hale called and aware dr. matas request 1151 - dr. angulo notified per dr. hale request.
--- NOTE | 2020-10-12 12:25 | SUR.PHASEI ---
1225 - dr. angulo at bedside administering a block for pain control
--- NOTE | 2020-10-12 12:37 | WPDANESPNB ---
Anes - Peripheral Nerve Block Date/Time: 10/12/20 12:37 I have discussed with the patient/family/POA the placement of a peripheral nerve block for post-operative pain management, including associated risks, benefits, complications, and side effects. Alternative methods of post-operative analgesia were detailed. Questions were solicited and answers provided to the satisfaction of the patient/family/POA. Time-Out: A pre-procedural Time-Out was completed immediately before starting the procedure and confirmed: Patient Identification, Site, Procedure, Patient Position and the Availability of Requisite Equipment. Clinical Indications: Acute post-operative pain management requested by the operative surgeon. Nerve Block Insertion Note Anes-nerve block: posterior fossa sciatic right and adductor canal right Patient position: supine (for adductor canal) and other (right lateral for popliteal) Skin prep: chlorhexidine Needle: 22 gauge, stimulating, insulated echogenic needle. Needle length: 80 mm Technique: nerve stimulation lost at (mA) (for popliteal lost at 0.2) and ultrasound Injectate: bupivacaine 0.5% with epi 5 mcg/ml (20 mL for popliteal, 10 mL for adductor canal (no epi)) Observations: tolerated well Complications: none Procedure start time:: 1227 Procedure end time:: 1233
[2020-10-12] MEDS: ONDANSETRON INJ 4 MG/2 ML VIAL IV PUSH (14:15)
== END 2020-10-12 14:25 | disposition home or self-care (01) ==
PROVIDERS: PCP Emergency Medicine; Visit Provider Orthopaedic Surgery
PROC: (CPT 27829; principal; 2020-10-12 07:30)
DX: T84.84XA Pain due to internal orthopedic prosthetic devices, implants and grafts, initial encounter (principal); T84.498A Other mechanical complication of other internal orthopedic devices, implants and grafts, initial encounter; S93.431D Sprain of tibiofibular ligament of right ankle, subsequent encounter; Y83.8 Other surgical procedures as the cause of abnormal reaction of the patient, or of later complication, without mention of misadventure at the time of the procedure; G89.18 Other acute postprocedural pain; M25.371 Other instability, right ankle; M25.571 Pain in right ankle and joints of right foot; F32.9 Major depressive disorder, single episode, unspecified; E66.9 Obesity, unspecified; Z68.38 Body mass index [BMI] 38.0-38.9, adult
CPT/HCPCS: 64445; 64447; 27829; A9270; C1713; J0690; J1100; J1170; J1885; J2250; J2405; J2704; J3010; J7120

== ENCOUNTER → 2020-11-24 03:31 | Outpatient (CLI) | payer OTHER, SELFPAY ==
[2020-11-24 19:41] LABS: SARS-CoV-2 RNA PCR Negative
== END ==
PROVIDERS: PCP Physician Assistant; Visit Provider Physician Assistant
DX: R68.89 Other general symptoms and signs (principal); Z20.822 Contact with and (suspected) exposure to COVID-19
CPT/HCPCS: C9803; U0003; U0005

== ENCOUNTER 2020-11-28 21:44 | Emergency (ER) | payer OTHER, SELFPAY ==
--- NOTE | ~2020-11-28 | XR_ITS ---
XR ankle RT min 3V DATE: 11/28/2020 22:06 INDICATION: [place] popping yesterday. Can't bear weight. TECHNIQUE: 4 views COMPARISON: 11/18/2020 right ankle FINDINGS: The fiberglass cast has been removed since 11/18/2020. There is fracture of the lowermost and longest transverse screw through the lateral fibular plate and distal fibular and tibial metaphyses. This break appears to be a new finding since 11/18/2020. No other significant changes since 11/18/2020. IMPRESSION: Fracture of distal-most transverse distal fibular/tibial metaphysis Reviewed, dictated and finalized at location A.
[2020-11-28 21:46] VITALS: BP 145/82; PULSE 88; RESP 17; TEMP 36.8; O2SAT 100
[2020-11-29 02:15] VITALS: BP 136/91; PULSE 75; RESP 18; O2SAT 98
[2020-11-29] MEDS: HYDROcodone/acetaminophen (*CRX) 5-325 MG TABLET 1 TAB PO (02:18)
--- NOTE | 2020-11-29 02:23 | ED.LOWEXIN ---
HPI - Extremity Injury (Lower) General Chief Complaint: Extremity Injury, Lower Stated Complaint: right ankle injury after surgery Time Seen by Provider: 11/29/20 02:05 Source: RN notes reviewed History of Present Illness HPI Narrative: Patient presents emergency department from home for right ankle pain. Patient states that she had surgery on her right ankle by Dr. Araiza the beginning of October. She states she has been wearing a boot and last night she was standing on the right ankle when she felt a pop in her ankle. Since that time she has had progressive pain in the right ankle and believes she refractured the ankle. She denies twisting the ankle. She denies any fevers or chills or any other symptoms Related Data Home Medications Medication Instructions Recorded Confirmed sertraline 100 mg PO QAM 03/03/20 11/18/20 Allergies Allergy/AdvReac Type Severity Reaction Status Date / Time No Known Allergies Allergy Verified 11/29/20 02:16 Review of Systems Review of Systems: Gen.: Denies fevers or chills Musculoskeletal: See HPI Neuro: Denies numbness, tingling, weakness Skin: Denies rash Endo: Denies DM PMFSH Past Medical History Medical History Ankle syndesmosis disruption BMI 37.0-37.9, adult Depression Encounter for Postoperative Care Fracture of lateral malleolus of right fibula at syndesmosis Tear of deltoid ligament of right ankle Wears glasses Surgical History Surgical History H/O: section H/O: hysterectomy History of cholecystectomy History of fracture of right ankle ORIF right distal fibula with syndesmotic stabilization March 2020 Family History Family History Other Depression Diabetes mellitus Heart disease Hypertension Skin cancer Social History Social History Alcohol intake: current Drinks per week: 2 Alcohol use details: occasional Substance use: never Gender identity (if verbalized by the patient): Female Spiritual care concerns: No Exam Narrative: APPEARANCE: No acute distress, nontoxic, resting in bed Eyes: EOMI HEENT: Normocephalic, atraumatic, RESPIRATORY: No respiratory distress MUSCULOSKELETAl: Tender to palpation over the right medial ankle mild swelling ecchymosis present no tenderness of the foot or the knee dorsalis pedis pulse 2+ neurovascular intact NEURO: Awake and alert. Following commands, speech normal, no focal deficits SKIN:: Warm, dry. Normal Color no rash or lesions Course Course Emergency Course: Discussed with Dr. Barger for orthopedics presentation work-up he reviewed the x-rays at this time feels patient may be placed back in boot with follow-up as an outpatient Discussed with patient results of workup and diagnosis. Discussed need for follow-up with primary care, proper use of medication, and reasons to return to the emergency department. Patient understands and agrees to current treatment plan Vital Signs Vital signs: Vital Signs Temperature 98.2 F 11/28/20 21:46 Pulse Rate 88 11/28/20 21:46 Respiratory Rate 17 11/28/20 21:46 Blood Pressure 145/82 H 11/28/20 21:46 Pulse Oximetry 100 11/28/20 21:46 Temperature 98.2 F 11/28/20 21:46 Pulse Rate 75 11/29/20 02:15 Respiratory Rate 18 11/29/20 02:15 Blood Pressure 136/91 H 11/29/20 02:15 Pulse Oximetry 98 11/29/20 02:15 MDM - Extremity Injury (Lower) Imaging Data Radiologist's impression: ITS Impressions Ankle X-Ray 11/28/20 22:07 IMPRESSION: Fracture of distal-most transverse distal fibular/tibial metaphysis Discharge Plan Discharge Clinical Impression: Closed fracture of distal end of right fibula Patient Disposition: Home, Self-Care Condition: Stable Instructions: Antibiotic
== END 2020-11-29 02:55 | disposition home or self-care (01) ==
PROVIDERS: Emergency Provider Emergency Medicine; PCP Physician Assistant
DX: S89.391A Other physeal fracture of lower end of right fibula, initial encounter for closed fracture (principal); S89.191A Other physeal fracture of lower end of right tibia, initial encounter for closed fracture; F32.9 Major depressive disorder, single episode, unspecified; X58.XXXA Exposure to other specified factors, initial encounter
CPT/HCPCS: 73610; 99284; A9270

== ENCOUNTER 2021-04-29 10:00 | Outpatient (RCR) | payer OTHER, SELFPAY ==
--- NOTE | 2021-04-01 11:31 | PTOPEVAL ---
PHYSICAL THERAPY EVALUATION AND PLAN OF CARE 04-01-21 Thank you for referring Guillermo Elizabeth to [facility], for the diagnosis is R ankle pain. With the evaluation, she also reports R low back and hip pain. Due to her R ankle pain and weakness, she has compensated and changed her positioning and gait pattern, causing her chronic back pain to increase. The PT plan of treatment will include her back . She is scheduled to be seen for therapy? 2 x/week for 5 weeks. Please review, sign, date and return this plan of care LEXIS. I agree with and certify that the following plan of care is medically necessary. Referring Physician Date Attending Provider: LIYAH Bhakta *PT Outpatient Evaluation Start: 04/01/21 10:21 Document 04/01/21 10:15 ARLETH (Rec: 04/01/21 11:31 ARLETH [id number]) Past Medical History Source of Past Medical History Recalled from Previous Visit, Confirmed with Patient/Family Neurological History Hx Neurological Disorders No Significant History Cardiovascular History Hx Heart Murmur Yes: CHILD Respiratory History Hx COVID-19 Yes Gastrointestinal History Hx Cholecystectomy Yes Hx Hemorrhoids Yes Genitourinary History Hx Urinary Tract Infection Yes Musculoskeletal History Hx Arthritis Yes: RT FOOT Hx Back Injury Yes: Sciatic pain R Hx Fractures Yes: RT ANKLE 02/28/20 Hx Orthopedic Surgery Yes: 03/05/21 s/p ORIF R ankle& 10/21/20 removal of hardware Hx Other Musculoskeletal Disorders Yes: left foot plantar fasciitis; pain R hip and knee Hematological History Hx Hematological Disorders No Significant History Endocrine History Hx Endocrine Disorders No Significant History HEENT History Hx Sinus Problems Yes Integumentary History Hx Skin Disorders No Significant History Reproductive History Hx Section Yes: x2 Hx Endometriosis Yes Hx Other Reproductive Disorders Yes: MULTIPLE LAPROSCOPIC SURGERIES; hysterectomy; pelvic pain Psychosocial History Hx Anxiety Yes Hx Depression Yes Hx Other Psychiatric Disorders Yes: PANIC ATTACKS Pain History History of Any Previous or Ongoing No Significant History Instance of Pain Anesthesia History Hx Other Anesthesia Reactions Yes: STATES SHE HAD WATER ON HER LUNGS AFTER HYSTERECTOMY Other History Hx Other Medical Conditions Yes: obeisty- pt reports recent weight gain Evaluation Information Problem Diagnosis R ankle pain Onset Dec 2020 Subjective Information gradual increase in pain afte
--- NOTE | 2021-04-06 09:50 | PCPTNOTE ---
Patient called & rescheduled today's appointment for tomorrow, due to not being able to make it.
--- NOTE | 2021-04-13 10:31 | PCPTNOTE ---
Patient called & cancelled scheduled appointment this date due to kids doing remote learning.
--- NOTE | 2021-04-27 14:00 | PCPTNOTE ---
Patient called & rescheduled today's appointment for tomorrow.
--- NOTE | 2021-04-28 14:36 | PCPTNOTE ---
Patient called & cancelled scheduled appointment this date due to has to pick child up from school.
--- NOTE | 2021-05-04 10:28 | PCPTNOTE ---
Patient called & cancelled scheduled appointment this date due to having a sick child.
--- NOTE | 2021-05-07 10:29 | PCPTNOTE ---
pt did not show for today's reeval; called her and she stated she thought her appt was yesterday and did not show due to bad weather; she is currently stuck in her driveway and clearing off her car; instructed her to call for reeval time and reschedule.
--- NOTE | 2021-05-25 09:48 | PCPTNOTE ---
PHYSICAL THERAPY DISCHARGE 05-25-21 Attending Provider: LIYAH Bhakta Patient:Guillermo Elizabeth Date of :1990 Ander[place] has not returned for any further treatments since 04/29/2021, therefore she will be discharged at this time. She received 6 PT sessions, from April 01 to April 29, for the diagnosis of R ankle pain. The goals were not addressed. Thank you for referring this patient to [facility]. Please review, sign, date and return this discharge summary LEXIS. I have been updated about the patient's current status and I agree with discharge from the above service at this time. Referring Physician Date
== END 2021-05-25 13:24 | disposition home or self-care (01) ==
LOC: ANHPT 10:00
PROVIDERS: PCP Physician Assistant; Visit Provider Physician Assistant
DX: M25.571 Pain in right ankle and joints of right foot (principal)
CPT/HCPCS: 97110; 97162

== ENCOUNTER 2021-09-01 08:15 | Outpatient (CLI) | payer BC, OTHER, SELFPAY ==
[2021-09-01 08:55] LABS: Anion Gap 5 mmol/L (8-16); Blood Urea Nitrogen 18 mg/dL (7-17); Calcium 9.1 mg/dL (8.4-10.2); Carbon Dioxide 28 mmol/L (22-30); Chloride 107 mmol/L (98-107); Estimated Glomerular Filt Rate 58; Glucose 105 mg/dL (65-110); Potassium 4.7 mmol/L (3.4-5.0); Sodium 140 mmol/L (137-145)
== END 2021-09-01 08:16 | disposition home or self-care (01) ==
LOC: ANHSURGERY 08:21
PROVIDERS: Anesthesiology; PCP Physician Assistant; Visit Provider Obstetrics & Gynecology
DX: Z01.812 Encounter for preprocedural laboratory examination (principal); R10.2 Pelvic and perineal pain
CPT/HCPCS: 36415; 80048; 86850; 86900; 86901

== ENCOUNTER 2021-09-03 01:25 | Day surgery (SDC) | payer BC, OTHER, SELFPAY ==
--- NOTE | 2021-08-10 11:28 | PM.IMHP ---
H&P: HPI History of Present Illness Date/Time: 08/10/21 11:28 Chief Complaint: Pelvic pain Review of Systems Review of Systems: All systems reviewed & are unremarkable except as noted in HPI and below PMFSH Past Medical History Medical History Ankle syndesmosis disruption BMI 37.0-37.9, adult Depression Encounter for Postoperative Care Fracture of lateral malleolus of right fibula at syndesmosis Tear of deltoid ligament of right ankle Wears glasses Surgical History Surgical History H/O: section H/O: hysterectomy History of cholecystectomy History of fracture of right ankle ORIF right distal fibula with syndesmotic stabilization March 2020 Family History Family History Other Depression Diabetes mellitus Heart disease Hypertension Skin cancer Social History Social History Alcohol intake: current Drinks per week: 2 Alcohol use details: occasional Substance use: never Gender identity (if verbalized by the patient): Female Spiritual care concerns: No Meds Home Medications and Allergies Home Medications Medication Instructions Recorded Confirmed Type sertraline 100 mg PO QAM 03/03/20 04/20/21 History diazepam [Valium] 5 mg PO TID PRN #20 tablet 10/12/20 04/20/21 Rx ondansetron 8 mg PO Q8H PRN #10 tablet 10/12/20 04/20/21 Rx oxycodone-acetaminophen 7.5 mg-325 1 tablet PO Q4H PRN #30 tablet 11/03/20 04/20/21 Rx mg tablet hydrocodone-acetaminophen 1 tablet PO Q4H PRN #8 tablet 11/29/20 04/20/21 Rx ibuprofen [IBU] 600 mg PO Q6H PRN #20 tablet 11/29/20 04/20/21 Rx bupropion HCl 150 mg 24 hr tablet, See Rx Instructions .ROUTE 01/13/21 04/20/21 Rx extended release .COMPLEX #30 tablet Allergies Allergy/AdvReac Type Severity Reaction Status Date / Time No Known Allergies Allergy Verified 04/20/21 13:27 Exam Const: General: no acute distress Eyes: General: appearance normal, both eyes and all related structures Neck: Neck: supple and no JVD Thyroid: thyroid normal Resp: Effort & Inspection: normal respiratory effort Auscultation: clear to auscultation bilaterally Cardio: Rate: regular rate Rhythm: regular rhythm GI: Inspection: non-distended GI Palp: Yes Soft to palpation, No Tenderness to palpation present (GI) and No Guarding due to palpation present (GI) Auscultation: normal bowel sounds : External Female Exam: normal external appearance Speculum Exam - Vagina: normal appearance of the vagina Speculum Exam - Cervix: Cervix absent Bimanual exam- vagina & uterus: uterus absent Bimanual Exam- Adnexa, other: tender Skin: General skin exam: no rashes or lesions noted Extrem: General: normal to inspection and no edema Psych: Mental Status: mental status grossly normal Affect: normal affect Assessment and Plan Additional Plan Impression: Pelvic pain in a patient status post hysterectomy Plan: Diagnostic laparoscopy
--- NOTE | 2021-08-26 12:48 | SUR.PREOP ---
Report to the Outpatient Waiting Room, entrance under the green pavilion located off [facility], at time 0600 on date 09/03/21. OR Time: 0730. - You and your visitor will be asked a series of questions to screen for COVID 19 for your protection. - Only one visitor is allowed at this time. - The patient visitor is requested to leave or wait in car when not with patient. - A mask is required within the hospital. Patients may have clear liquids (water, carbonated beverages, clear teas, apple juice) until 3 hours prior to surgery with a maximum of 20 ounces. - NO CLEAR LIQUIDS AFTER 0430 - No food from midnight until time of surgery - Infants may have breast milk until 4 hours before surgery, infant formula 6 hours prior to surgery. - Children will be allowed to drink immediately following surgery. If applicable, please bring a bottle or sippy cup to assist with drinking. Juice, water, soda, and popsicles are readily available. For infants on formula, please bring formula the day of surgery. Pacifiers are allowed. Take the following medications with a SIP of water the morning of surgery: BUPROPION, SERTRALINE Please no make-up, nail moroccan, hairspray, perfume, deodorant, or body powder the day of surgery. No jewelry (including any body piercings) or valuables the day of surgery, leave them at home. Please take a shower or bath the night before, or the morning of, surgery with an antibacterial soap. Wear comfortable, loose fitting clothing. Children are encouraged to wear pajamas. - Jewelry must be removed prior to entering the operating room. Rings and piercings that are not removed may be cut off. - The hospital will not accept responsibility for valuables. - Please leave all valuables, including medications, at home the day of surgery. If you are going home after surgery, a licensed wheat combine driver must drive you home. - NO public transportation without another adult. - We recommend that an adult stay with you for 24 hours following discharge. - We also recommend that you do not drive, make important decision, drink alcoholic beverages, or take any drugs that were not prescribed by your health care provider for at least 24 hours after your discharge time. For Pediatric surgeries, we recommend two adults accompany the child home (only one inside the building at this time). Follow any additional instructions given to you from your surgeon. If you or anyone in your household have experienced Covid symptoms in the past week, please notify your surgeon or the nurse liaison at the phone number below for possible testing. Telephone instructions given to DARREN MICHEL and asked if any additional questions and then verbalized understanding. Patient advised to call surgeon office or pre surgery nurse liaison [phone] if any additional questions.
[2021-08-26 13:05] VITALS: BMI 33.9
--- NOTE | 2021-08-31 07:21 | PM.IMHP ---
H&P: HPI History of Present Illness Date/Time: 08/31/21 07:21 Chief Complaint: pelvic pain Narrative: this is a 30-year-old female status post hysterectomy admitted for diagnostic laparoscopy secondary to pelvic pain. She is undergoing hysterectomy for the passes noted and a suspect she has scar tissue imaging has been on helpful and she continuous severe pain. Risks and benefits reviewed in full [facility] Past Medical History Medical History Ankle syndesmosis disruption BMI 37.0-37.9, adult Depression Encounter for Postoperative Care Fracture of lateral malleolus of right fibula at syndesmosis Tear of deltoid ligament of right ankle Wears glasses Surgical History Surgical History H/O: section H/O: hysterectomy History of cholecystectomy History of fracture of right ankle ORIF right distal fibula with syndesmotic stabilization March 2020 Family History Family History Other Depression Diabetes mellitus Heart disease Hypertension Skin cancer Social History Social History Smoking status: Never smoker Alcohol intake: current Alcohol use details: RARE Substance use: current Substance use type: marijuana Gender identity (if verbalized by the patient): Female Spiritual care concerns: No Meds Home Medications and Allergies Home Medications Medication Instructions Recorded Confirmed Type sertraline 100 mg tablet 100 mg PO QAM 03/03/20 08/26/21 History bupropion HCl 150 mg 24 hr tablet, 150 mg PO DAILY 08/26/21 08/26/21 History extended release spironolactone 50 mg tablet 150 tablet PO DAILY 08/26/21 08/26/21 History Allergies Allergy/AdvReac Type Severity Reaction Status Date / Time No Known Allergies Allergy Verified 04/20/21 13:27 Exam GI: Percussion: Yes normal to percussion Auscultation: normal bowel sounds : External Female Exam: normal external appearance Speculum Exam - Vagina: normal appearance of the vagina Speculum Exam - Cervix: Cervix absent Bimanual exam- vagina & uterus: uterus absent Bimanual Exam- Adnexa, other: tender Assessment and Plan Assessment and plan (1) Pelvic pain: Code(s): R10.2 - Pelvic and perineal pain Status: Acute Plan pelvic pain Additional Plan diagnostic laparoscopy
[2021-09-03] VITALS (10 sets, daily range): BP systolic 103–119; BP diastolic 61–76; PULSE 59–77; RESP 10–20; TEMP 36.3–37.4; O2SAT 93–100
[2021-09-03] MEDS: ACETAMINOPHEN 500 MG TABLET 1000 MG PO (06:28)
[2021-09-03] MEDS: KETOROLAC 15 MG/ML VIAL (*BKC) IV PUSH (06:41)
--- NOTE | 2021-09-03 06:54 | P.PNAN_ITS ---
Anes - Initial Pre Proc Eval Procedure: Operation Date: 09/03/21 07:30 Proposed Procedures p Diagnostic Laparoscopy - Wicho Wheatley MD Date/Time: 09/03/21 06:54 Surgeon: Wicho Wheatley MD Pre Op Diagnosis: pelvic pain Patient Data Age: 30 Gender: F Height: 1.83 m Weight: 117 kg Last Vital Signs Temp 36.3 C L 09/03/21 06:24 Pulse 67 09/03/21 06:24 Resp 16 09/03/21 06:24 BP 118/66 09/03/21 06:24 Pulse Ox 100 09/03/21 06:24 O2 Del Method Room Air 09/03/21 06:24 Allergies Allergy/AdvReac Type Severity Reaction Status Date / Time No Known Allergies Allergy Verified 09/03/21 06:13 Home Medications Medication Instructions Recorded Confirmed Type sertraline 100 mg tablet 100 mg PO QAM 03/03/20 09/03/21 History bupropion HCl 150 mg 24 hr tablet, 150 mg PO DAILY 08/26/21 09/03/21 History extended release spironolactone 50 mg tablet 150 tablet PO DAILY 08/26/21 09/03/21 History Patient hx anesthesia problems: none Family hx anesthesia problems: none Results Review: All pre-operative results and documents have been reviewed as part of the pre- operative evaluation. [facility] Past Medical History Medical History Anxiety Depression Panic attacks Surgical History Surgical History H/O: section H/O: hysterectomy History of cholecystectomy History of fracture of right ankle ORIF right distal fibula with syndesmotic stabilization March 2020 Family History Family History Other Depression Diabetes mellitus Heart disease Hypertension Skin cancer Social History Social History Alcohol intake: current Alcohol use details: occasional Substance use: never Substance use type: marijuana Gender identity (if verbalized by the patient): Female Spiritual care concerns: No Anes - Eval Final PreProcedure Day of Procedure 09/03/21 06:54 Patient weight: obese Heart: regular rate and rhythm Lungs: clear to auscultation Airway: Mallampati scale class II Neurological: alert and oriented Last oral intake: >/= 8 hours ASA classification: III Emergent: no Anesthetic plan: proceed Anesthesia type and monitoring: general ETT and standard monitoring Results Review: All pre-operative results and documents have been reviewed as part of the pre- operative evaluation. Informed Consent: The patient's anesthetic plan and its attendant risks and benefits were discussed with the patient/family/POA. Questions were solicited and answers provided to the satisfaction of the patient/family/POA.
[2021-09-03] MEDS: LACTATED RINGERS 1,000 ML 30 ML IV CONT ×2 (07:04→08:53)
--- NOTE | 2021-09-03 07:10 | WPDHPUPDATE1 ---
History and Physical Update Update Date/Time: 09/03/21 07:10 History and Physical has been reviewed, including an updated exam of the patient. There are NO changes in the patient's condition. Risks, benefits, and alternatives have been discussed and questions answered. Patient agrees to proceed with procedure.
--- NOTE | 2021-09-03 07:58 | P.OP_ITS ---
Procedure Note - Detailed Date of Procedure 09/03/21 Pre-op Diagnosis pelvic pain/endo Post-op Diagnosis Same Procedure Performed Laparoscopic destruction endometriosis Surgeon Wicho Wheatley MD Anesthesia General Indications Since 30-year-old female history of hysterectomy right salpingo-oophorectomy complaining of severe pelvic pain Findings Absent right ovary tube and uterus. Normal-appearing left ovary. The endometriosis along the uterosacral ligaments bilaterally. The pedicles appeared grossly normal. Gallbladder was surgically absent Description of Procedure Patient was prepped draped in the normal sterile fashion placed in the dorsal lithotomy position. Under excellent general trach anesthesia weighted speculum placed posterior fornix vagina. Sponge stick was placed in the weighted spec ulum. The bladder was emptied of clear urine. The gloves were changed next. An infraumbilical incision made the Veress needle. With CO2 gas fill to 15 the 5mm trocar advanced under direct visualization assuring no injury. Patient placed in Trendelenburg and a suprapubic incision made. The 5mm trocar advanced under direct visualization assuring no injury. The above findings were seen. Photo documentation was undertaken. The areas of the endometriosis were point cauterized at 35 w per 2nd assuring complete desiccation. Irrigation was undertaken until clear. No other abnormalities were seen. The lower site removed. The gas removed from the abdomen. The upper site removed. The incisions closed with 4 Monocryl and glue. Instruments removed from the vagina. Patient went to recovery in satisfactory condition. All sponge, needle, instrument counts were correct. There were no immediate complications Estimated Blood Loss 5 Drains No Packing No Pathology None sent Complications No immediate complications Condition Stable Disposition PACU
[2021-09-03] MEDS: fentaNYL CITRATE INJ (*CRX) 100 MCG/2 ML VIAL 25 MCG IV PUSH ×5 (08:17→08:53)
== END 2021-09-03 10:42 | disposition home or self-care (01) ==
PROVIDERS: PCP Physician Assistant; Visit Provider Obstetrics & Gynecology
PROC: (CPT 49320; principal; 2021-09-03 07:30)
DX: R10.12 Left upper quadrant pain (principal); N80.3 Endometriosis of pelvic peritoneum; F41.8 Other specified anxiety disorders; F41.0 Panic disorder [episodic paroxysmal anxiety]; E66.9 Obesity, unspecified; Z68.35 Body mass index [BMI] 35.0-35.9, adult
CPT/HCPCS: 58662; A9270; J0330; J1885; J2250; J2270; J2405; J2704; J3010; J7030; J7120

== ENCOUNTER 2021-10-08 01:03 | Day surgery (SDC) | payer BC, OTHER, SELFPAY ==
[2021-09-24 11:59] VITALS: BMI 34.9
--- NOTE | 2021-10-07 14:17 | PM.HPGS ---
History of Present Illness History of Present Illness Consent: Risks, benefits, and alternatives have been discussed and questions answered. Patient agrees to proceed with procedure. Chief complaint: nausea, intermittent constipation, diarrhea Narrative: Guillermo Elizabeth is a 31 year old female referred because of recurrent intermittent nausea also bowel changes. The nausea has been going on for couple months. There has been no weight loss She has had some lower abdominal pain for which she was recently treated with ablation of endometriosis. Her pain improved slightly after the endometriosis treatment her bowels have been very irregular for quite a while. She will have loose stools and then become constipated and often has pelvic pain with bowel movements. Review of Systems Review of Systems: All systems reviewed & are unremarkable except as noted in HPI and below PMFSH Past Medical History Medical History Anxiety Depression Panic attacks Surgical History Surgical History H/O: section H/O: hysterectomy History of cholecystectomy History of fracture of right ankle ORIF right distal fibula with syndesmotic stabilization March 2020 Family History Family History Other Depression Diabetes mellitus Heart disease Hypertension Skin cancer Social History Social History Smoking status: Never smoker Alcohol intake: current Alcohol use details: occasional use Substance use: current Substance use type: marijuana Living arrangements: with family Additional living arrangements comments: 2 sons live with her Gender identity (if verbalized by the patient): Female Spiritual care concerns: No Meds Home Medications and Allergies Home Medications Medication Instructions Recorded Confirmed Type sertraline 100 mg tablet 100 mg PO QAM 03/03/20 09/24/21 History bupropion HCl 150 mg 24 hr tablet, 150 mg PO DAILY 08/26/21 09/24/21 History extended release spironolactone 50 mg tablet 150 tablet PO DAILY 08/26/21 09/24/21 History Allergies Allergy/AdvReac Type Severity Reaction Status Date / Time No Known Allergies Allergy Verified 10/08/21 11:24 Exam Const: General: alert Orientation/consciousness: patient oriented x3 Resp: Auscultation: clear to auscultation bilaterally Cardio: Rhythm: regular rhythm GI: GI Palp: Yes Soft to palpation and No Tenderness to palpation present (GI) Neuro: General: patient oriented x3 Assessment and Plan Assessment and plan (1) Nausea: Code(s): R11.0 - Nausea Status: Acute Assessment and Plan: EGD with possible biopsy or dilatation or cautery. (2) Change in bowel habits: Code(s): R19.4 - Change in bowel habit Status: Acute Assessment and Plan: Colonoscopy with possible biopsy or polypectomy or cautery or injection of substances.
[2021-10-08 11:26] VITALS: BP 111/74; PULSE 84; RESP 18; TEMP 36.1; O2SAT 99
[2021-10-08] MEDS: LACTATED RINGERS 1,000 ML 150 ML IV CONT (11:36)
--- NOTE | 2021-10-08 12:23 | P.PNAN_ITS ---
Anes - Initial Pre Proc Eval Procedure: Operation Date: 10/08/21 12:30 Proposed Procedures p Esophagogastroduodenoscopy & Colonoscopy - Pee Norman MD Date/Time: 10/08/21 12:23 Surgeon: Pee Norman MD Pre Op Diagnosis: nausea, intermittent constipation, diarrhea Patient Data Age: 31 Gender: F Height: 1.8 m Weight: 114 kg Last Vital Signs Temp 97.0 F L 10/08/21 11:26 Pulse 84 10/08/21 11:26 Resp 18 10/08/21 11:26 BP 111/74 10/08/21 11:26 Pulse Ox 99 10/08/21 11:26 O2 Del Method Room Air 10/08/21 11:26 Allergies Allergy/AdvReac Type Severity Reaction Status Date / Time No Known Allergies Allergy Verified 10/08/21 11:24 Home Medications Medication Instructions Recorded Confirmed Type sertraline 100 mg tablet 100 mg PO QAM 03/03/20 09/24/21 History bupropion HCl 150 mg 24 hr tablet, 150 mg PO DAILY 08/26/21 09/24/21 History extended release spironolactone 50 mg tablet 150 tablet PO DAILY 08/26/21 09/24/21 History Patient hx anesthesia problems: none Family hx anesthesia problems: none Results Review: All pre-operative results and documents have been reviewed as part of the pre- operative evaluation. [facility] [place] Past Medical History Medical History Anxiety Depression Panic attacks Surgical History Surgical History H/O: section H/O: hysterectomy History of cholecystectomy History of fracture of right ankle ORIF right distal fibula with syndesmotic stabilization March 2020 Family History Family History Other Depression Diabetes mellitus Heart disease Hypertension Skin cancer Social History Social History Smoking status: Never smoker Alcohol intake: current Alcohol use details: occasional use Substance use: current Substance use type: marijuana Living arrangements: with family Additional living arrangements comments: 2 sons live with her Gender identity (if verbalized by the patient): Female Spiritual care concerns: No Anes - Eval Final PreProcedure Day of Procedure 10/08/21 12:23 Patient weight: obese Heart: regular rate and rhythm Lungs: clear to auscultation Airway: Mallampati scale class II Neurological: alert and oriented Last oral intake: >/= 8 hours ASA classification: II Emergent: no Anesthetic plan: proceed Anesthesia type and monitoring: general GIVS and standard monitoring Results Review: All pre-operative results and documents have been reviewed as part of the pre- operative evaluation. Informed Consent: The patient's anesthetic plan and its attendant risks and benefits were d iscussed with the patient/family/POA. Questions were solicited and answers provided to the satisfaction of the patient/family/POA.
--- NOTE | 2021-10-08 12:44 | SUR.OPER ---
EGD: [id number] Colonoscopy began at 1244
[2021-10-08] MEDS: SIMETHICONE ORAL SUSPENSION 20 MG/0.3 ML 30 ML BOTTLE 0.6 ML IRRIGATION (12:47)
[2021-10-08 12:58] VITALS: BP 147/123; PULSE 76; RESP 20; O2SAT 98
[2021-10-08 13:08] VITALS: BP 117/67; PULSE 74; RESP 20; O2SAT 99
[2021-10-08 13:18] VITALS: BP 113/65; PULSE 68; RESP 20; O2SAT 100
--- NOTE | 2021-10-08 13:33 | SUR.PHASEII ---
DOCTOR HAD ORDERED AMITRIPTYLINE, THEN DECIDED NOT TO ORDER IT, PT AWARE AND STATES UNDERSTANDING, CROSSED OFF DISCHARGE PAPERS.
== END 2021-10-08 13:36 | disposition home or self-care (01) ==
PROVIDERS: PCP Physician Assistant; Visit Provider Internal Medicine Gastroenterology
PROC: 0DJ08ZZ Inspection of Upper Intestinal Tract, Via Natural or Artificial Opening Endoscopic (ICD-10-PCS; CPT 43235; principal; 2021-10-08 12:30)
DX: R19.4 Change in bowel habit (principal); K21.9 Gastro-esophageal reflux disease without esophagitis; K29.70 Gastritis, unspecified, without bleeding; F41.9 Anxiety disorder, unspecified; F32.A Depression, unspecified; F41.0 Panic disorder [episodic paroxysmal anxiety]; F12.90 Cannabis use, unspecified, uncomplicated; E66.9 Obesity, unspecified; Z68.35 Body mass index [BMI] 35.0-35.9, adult
CPT/HCPCS: 45378; 43239; 87081; J2001; J2704; J7120

== ENCOUNTER 2022-02-12 19:09 | Emergency (ER) | payer BC, OTHER, SELFPAY ==
[2022-02-12 19:18] VITALS: BP 132/60; PULSE 83; RESP 16; TEMP 35.6; O2SAT 100
--- NOTE | 2022-02-12 19:37 | ED.URI ---
HPI - URI/Sore Throat General Chief Complaint: Upper Respiratory Infection Stated Complaint: Sore Throat Time Seen by Provider: 02/12/22 19:37 Source: patient Mode of arrival: ambulatory Limitations: no limitations History of Present Illness HPI Narrative: 31-year-old female presents with complaint of sore throat for 2 days. Afebrile. Positive fatigue. Also reports skin lesions to face that are spreading for the past week. States that they itch and burn. Denies cough, congestion. No nausea vomiting diarrhea. All systems reviewed and negative except as noted above. Related Data Home Medications Medication Instructions Recorded Confirmed sertraline 100 mg tablet 100 mg PO QAM 03/03/20 02/12/22 bupropion HCl 150 mg 24 hr tablet, 150 mg PO DAILY 08/26/21 02/12/22 extended release cholecalciferol (vitamin D3) 02/12/22 lisdexamfetamine 20 mg capsule mg 02/12/22 (Vyvanse) propranolol 10 mg tablet mg 02/12/22 Allergies Allergy/AdvReac Type Severity Reaction Status Date / Time No Known Allergies Allergy Verified 10/08/21 11:24 Review of Systems Review of Systems: CONSTITUTIONAL: Denies fever, chills, or sweats. EYES: Denies visual changes, redness, or discharge. ENT: Denies rhinorrhea, congestion . Reports sore throat. Denies otalgia. CARDIOVASCULAR: Denies chest pain, palpitations, or edema. RESPIRATORY: Denies cough or dyspnea. GASTROINTESTINAL: Denies abdominal pain, nausea, vomiting, or diarrhea. GENITOURINARY: Denies dysuria or hematuria. SKIN: Denies rash or itching. reports facial lesions. MUSCULOSKELETAL: Denies back pain, joint pain, or myalgia. NEUROLOGIC: Denies headache, numbness, or weakness. PSYCHIATRIC: Denies anxiety or depression. All other systems reviewed are negative, except as documented in HPI. [facility] Past Medical History Medical History Anxiety Depression Panic attacks Surgical History Surgical History H/O: section H/O: hysterectomy History of cholecystectomy History of fracture of right ankle ORIF right distal fibula with syndesmotic stabilization March 2020 Family History Family History Other Depression Diabetes mellitus Heart disease Hypertension Skin cancer Social History Social History Smoking status: Never smoker Alcohol intake: current Alcohol use details: occasional use Substance use: current Substance use type: marijuana Additional living arrangements comments: 2 sons live with her Gender identity (if verbalized by the patient): Female Spiritual care concerns: No Comments At time of signature, agree with nursing past medical, surgical, social and family history. There is no relevant family history pertinent to the presenting complaint. Exam Narrative: GENERAL: This is a well-nourished, well-developed patient, in no apparent distress. HEAD: normocephalic, atraumatic. EYES: PERRL. Sclera clear/white. Vision is grossly intact. EARS: External ears normal NOSE: External nose normal with no obvious nasal discharge, nares without redness, no rhinorrhea. THROAT: Mucous membranes moist . Erythema swelling, exudates. NECK: Neck supple, non-tender without lymphadenopathy, masses or thyromegaly. CARDIOVASCULAR: Regular rate and rhythm without murmurs, gallops, or rubs. RESPIRATORY: Clear to auscultation. Breath sounds equal bilaterally. No wheezes, rales, or rhonchi. SKIN: warm, Dry, intact with no suspicious rash, good texture and turgor. Circular lesions to nose, chin, left cheek concerning for staph infection. Yellow drainage noted. NEURO: awake, alert, and oriented to person, place and time. There were no obvious focal neurologic abnormalities. EXTREMITIES: No joint tenderness, effusion, or edema noted.
== END 2022-02-12 19:56 | disposition home or self-care (01) ==
PROVIDERS: Emergency Provider Nurse Practitioner Family
DX: J02.0 Streptococcal pharyngitis (principal); L08.9 Local infection of the skin and subcutaneous tissue, unspecified; B95.8 Unspecified staphylococcus as the cause of diseases classified elsewhere; F41.9 Anxiety disorder, unspecified; F32.A Depression, unspecified; F41.0 Panic disorder [episodic paroxysmal anxiety]
CPT/HCPCS: 87880; 99213; G0463

== ENCOUNTER 2022-03-31 19:35 | Emergency (ER) | payer BC, OTHER, SELFPAY ==
--- NOTE | 2022-03-31 19:42 | ED_ITS ---
HPI - URI/Sore Throat General Stated Complaint: Multiple Compliants Related Data Home Medications Medication Instructions Recorded Confirmed sertraline 100 mg tablet 100 mg PO QAM 03/03/20 02/12/22 bupropion HCl 150 mg 24 hr tablet, 150 mg PO DAILY 08/26/21 02/12/22 extended release cholecalciferol (vitamin D3) 02/12/22 lisdexamfetamine 20 mg capsule mg 02/12/22 (Vyvanse) propranolol 10 mg tablet mg 02/12/22 Allergies Allergy/AdvReac Type Severity Reaction Status Date / Time No Known Allergies Allergy Verified 10/08/21 11:24 [facility] Past Medical History Medical History Anxiety Depression Panic attacks Surgical History Surgical History H/O: section H/O: hysterectomy History of cholecystectomy History of fracture of right ankle ORIF right distal fibula with syndesmotic stabilization March 2020 Family History Family History Other Depression Diabetes mellitus Heart disease Hypertension Skin cancer Social History Social History Smoking status: Never smoker Alcohol intake: current Alcohol use details: occasional use Substance use: current Substance use type: marijuana Additional living arrangements comments: 2 sons live with her Gender identity (if verbalized by the patient): Female Spiritual care concerns: No Discharge Plan Discharge Prescriptions: No Action propranolol 10 mg tablet Vyvanse 20 mg capsule cholecalciferol (vitamin D3) amoxicillin 500 mg tablet 500 mg PO Q12H 10 Days Qty: 20 0RF mupirocin 2 % ointment 1 applic topical BID 10 Days Qty: 22 0RF sertraline 100 mg tablet 100 mg PO QAM bupropion HCl 150 mg tablet extended release 24 hr 150 mg PO DAILY Rx Instructions: TAKE 1 TABLET BY MOUTH EVERY MORNING Follow-up/Referrals: PHYSICIAN,[facility] [Primary Care Provider] -
[2022-03-31 19:44] VITALS: BP 146/80; PULSE 83; RESP 16; TEMP 36.8; O2SAT 99
[2022-03-31 19:46] VITALS: BP 146/80; PULSE 83; RESP 16; O2SAT 99
--- NOTE | 2022-03-31 19:46 | ED.SKABFB ---
HPI - Skin/Abscess/Foreign Bdy General Chief complaint: Back Pain/Injury Stated complaint: Multiple Compliants Time Seen by Provider: 03/31/22 19:48 Source: patient Mode of arrival: ambulatory Limitations: no limitations History of Present Illness HPI narrative: Guillermo is a 31-year-old female patient presenting to clinic today with complaints skin sores on her feet, neck, face, and right-sided sciatica pain. She reports that she has had pain shooting down the right side of the leg and some low back pain. She denies any loss of bowel or bladder. She denies any saddle anesthesia Related Data Home Medications Medication Instructions Recorded Confirmed sertraline 100 mg tablet 100 mg PO QAM 03/03/20 03/31/22 bupropion HCl 150 mg 24 hr tablet, 150 mg PO DAILY 08/26/21 03/31/22 extended release cholecalciferol (vitamin D3) 1 tab-cap PO DAILY 02/12/22 03/31/22 lisdexamfetamine 20 mg capsule 20 mg PO DAILY 02/12/22 03/31/22 (Vyvanse) propranolol 10 mg tablet 10 mg PO DIRECTED 02/12/22 03/31/22 Allergies Allergy/AdvReac Type Severity Reaction Status Date / Time No Known Allergies Allergy Verified 03/31/22 19:45 Review of Systems Review of Systems: Pertinent positives per HPI. Patient denies any fever, chills, headache, visual changes, dizziness, cough, runny nose, sore throat, shortness of breath, chest pain, palpitations, nausea, vomiting, diarrhea, constipation, abdominal pain, or any urinary issues. [facility] Past Medical History Medical History Anxiety Depression Panic attacks Surgical History Surgical History H/O: section H/O: hysterectomy History of cholecystectomy History of fracture of right ankle ORIF right distal fibula with syndesmotic stabilization March 2020 Family History Family History Other Depression Diabetes mellitus Heart disease Hypertension Skin cancer Social History Social History Smoking status: Never smoker Alcohol intake: current Alcohol use details: occasional use Substance use: current Substance use type: marijuana Additional living arrangements comments: 2 sons live with her Gender identity (if verbalized by the patient): Female Spiritual care concerns: No Comments At the time of my signature, I reviewed and agree with the nursing past medical, surgical, social, and family history. There is no relevant family history pertinent to the patient complaint. Exam Narrative: General: Well-developed, well nourished, in no apparent distress Head: Normocephalic, atraumatic. Cardio: Regular rate and rhythm, s1 and s2 normal, no murmur appreciated. Resp: Clear to auscultation bilaterally, no rhonchi, rales, wheezing or rubs. Musculoskeletal: No deformity, tender to palpation over the right SI joint with pain radiating down the right leg, grossly normal range of motion, muscle strength strong and equal, peripheral pulse strong, no edema, no cyanosis, normal gait and station Integumentary: [place], warm, and dry, open sores with yellow crusting and scaling to the face, neck, and bilateral feet Course Course Emergency Course: Portions of this record may have been created with voice recognition software. Level of Care: Express Care Visit Vital Signs Vital signs: Vital Signs Temperature 36.8 C 03/31/22 19:44 Pulse Rate 83 03/31/22 19:44 Respiratory Rate 16 03/31/22 19:44 Blood Pressure 146/80 H 03/31/22 19:44 Pulse Oximetry 99 03/31/22 19:44 Oxygen Delivery Room Air 03/31/22 19:44 Temperature 36.8 C 03/31/22 19:44 Pulse Rate 83 03/31/22 19:46 Respiratory Rate 16 03/31/22 19:46 Blood Pressure 146/80 H 03/31/22 19:46 Pulse Oximetry 99 03/31/22 19:46 Oxygen
== END 2022-03-31 19:53 | disposition home or self-care (01) ==
PROVIDERS: Emergency Provider Nurse Practitioner Family
DX: M54.9 Dorsalgia, unspecified (principal); M54.31 Sciatica, right side; L08.9 Local infection of the skin and subcutaneous tissue, unspecified; B95.8 Unspecified staphylococcus as the cause of diseases classified elsewhere; F12.90 Cannabis use, unspecified, uncomplicated; F41.9 Anxiety disorder, unspecified; F32.A Depression, unspecified; F41.0 Panic disorder [episodic paroxysmal anxiety]
CPT/HCPCS: 99213; G0463

== ENCOUNTER 2022-05-03 07:58 | Outpatient (RCR) | payer BC, OTHER, SELFPAY ==
[2022-05-03 08:17] VITALS: BMI 38.0
[2022-05-03 10:32] VITALS: BMI 38.0
== END 2022-07-19 12:00 | disposition home or self-care (01) ==
LOC: ANHDMC 07:58
PROVIDERS: PCP Family Medicine; Visit Provider Nurse Practitioner
DX: E66.3 Overweight (principal); Z71.3 Dietary counseling and surveillance
CPT/HCPCS: 97802

== ENCOUNTER 2022-12-07 18:55 | Emergency (ER) | payer BC, OTHER, SELFPAY ==
--- NOTE | ~2022-12-07 | XR_ITS ---
EXAM: XR nasal bones min 3V DATE: 12/07/2022 20:25 HISTORY: fell hit nose on trash dumpster . COMPARISON: None available. FINDINGS: Normal mineralization. No fracture or dislocation. No lytic or blastic lesion. [place] are clear. Symmetric orbits. No erosion or periosteal change. Soft tissues within normal limits. IMPRESSION: No acute osseous finding. Reviewed, dictated and finalized at location K. IMPRESSION: No acute osseous finding.
--- NOTE | 2022-12-07 18:58 | ED.HEATRA ---
HPI - Head Injury General Chief complaint: Head Injury Stated complaint: Head Injury Time Seen by Provider: 12/07/22 18:57 Source: patient Mode of arrival: ambulatory Limitations: no limitations History of Present Illness HPI Narrative: Patient is a 32-year-old female who presents with nasal bone pain after hitting it on stone while on vacation on Monday. Patient states since then she has had dull headache and increased fatigue along with photophobia. Denies any changes in vision, nausea, vomiting. States she had bloody nose but it resolved and has not bled since. Denies any bruising on face or around the eyes. Has taken ibuprofen and tylenol. Related Data Home Medications Medication Instructions Recorded Confirmed cholecalciferol (vitamin D3) 1 tab-cap PO DAILY 02/12/22 12/07/22 propranolol 10 mg tablet 10 mg PO DIRECTED 02/12/22 12/07/22 efinaconazole 10 % topical 1 applic topical DIRECTED 12/07/22 12/07/22 solution with applicator (Jublia) minocycline 100 mg capsule 100 mg DIRECTED 12/07/22 12/07/22 sertraline 100 mg tablet mg 12/07/22 Allergies Allergy/AdvReac Type Severity Reaction Status Date / Time No Known Allergies Allergy Verified 10/25/22 10:43 Review of Systems Review of Systems: All systems reviewed & are unremarkable except as noted in HPI and below Constitutional: Constitutional: Denies body ache(s), Denies chills, Denies fatigue, Denies fever(s), Denies headache(s), Denies malaise and Denies weakness Eyes: Eyes: Denies blurry vision, Denies irritation and Denies loss of vision ENT: Denies otalgia, Denies headache(s), Denies nasal discharge, Reports nasal trauma, Denies sinus pain and Denies sore throat Cardiovascular: Cardiovascular: Denies chest pain, Denies irregular heart rhythm and Denies dyspnea Respiratory: Respiratory: Denies dyspnea Gastrointestinal: Gastrointestinal: Denies abdominal pain, Denies melena, Denies hematochezia, Denies diarrhea, Denies nausea and Denies vomiting Musculoskeletal: Musculoskeletal: Denies back pain, Denies myalgias and Denies arthralgias Integumentary/Breasts: Skin/Breast: Denies pruritus and Denies rash Neurologic: Denies headache(s), Denies loss of vision and Denies weakness Psychiatric: Psychiatric: Reports no additional psychiatric complaints Endocrine: Endocrine: Denies fatigue PMFSH Past Medical History Medical History Anxiety Depression Panic attacks Surgical History Surgical History H/O: section H/O: hysterectomy History of cholecystectomy History of fracture of right ankle ORIF right distal fibula with syndesmotic stabilization March 2020 Family History Family History Other Depression Diabetes mellitus Heart disease Hypertension Skin cancer Social History Social History Smoking status: Never smoker Alcohol intake: current Alcohol use details: occasional use Substance use: current Substance use type: marijuana Lack of Transportation: No Lack of Food: Never True Current Housing: I Have Housing Concerned About Future Housing: No Difficulty Paying Gas/Electric Bills: No Difficulty Paying for Meds: No Currently Unemployed: No Education: High School Diploma/GED Difficulty w/ Childcare or Family Care: No Living arrangements: with family Additional living arrangements comments: 2 sons live with her Occupation/Education: unemployed Gender identity (if verbalized by the patient): Female Spiritual care concerns: No Comments At time of signature, agree with nursing past medical, surgical, social and family history. There is no relevant family history pertinent to the presenting complaint. Exam Const: General: cooperative, healthy appearing, com
[2022-12-07 19:13] VITALS: BP 145/88; PULSE 77; RESP 16; TEMP 36.8; O2SAT 99
== END 2022-12-07 20:47 | disposition home or self-care (01) ==
PROVIDERS: Emergency Provider Nurse Practitioner Family; PCP Nurse Practitioner
DX: S06.0X0A Concussion without loss of consciousness, initial encounter (principal); S09.92XA Unspecified injury of nose, initial encounter; W22.8XXA Striking against or struck by other objects, initial encounter; F41.9 Anxiety disorder, unspecified; F32.A Depression, unspecified; F41.0 Panic disorder [episodic paroxysmal anxiety]
CPT/HCPCS: 70160; 99213; G0463

== ENCOUNTER 2022-12-20 15:43 | Outpatient (CLI) | payer BC, OTHER, SELFPAY ==
--- NOTE | ~2022-12-20 | XR_ITS ---
XR lumbar spine 6V w bending DATE: 12/20/2022 16:16 INDICATION: Back pain, sciatica pain for one year TECHNIQUE: AP, lateral, bilateral oblique views, coned lateral lumbosacral view. Flexion and extensio n lateral views. COMPARISON: None FINDINGS: There is mild degenerative spurring in the lower thoracic spine at L1-2, L2-3, L3-4 and L4- 5. There is mild loss of height at L4-5 interspace. Lumbosacral interspaces are otherwise relatively wel l preserved. No fracture or bone destruction or spondylolisthesis or spondylolysis is noted. No instability on fle xion or extension. The sacroiliac joints are intact. Status post cholecystectomy. IMPRESSION: Mild degenerative changes of the lower thoracic and lumbar spine, most prominent at L4-5 Reviewed, dictated and finalized at location A. IMPRESSION: Mild degenerative changes of the lower thoracic and lumbar spine, m ost prominent at L4-5
== END 2022-12-20 15:44 | disposition home or self-care (01) ==
PROVIDERS: PCP Nurse Practitioner; Visit Provider Anesthesiology Pain Medicine
DX: M47.27 Other spondylosis with radiculopathy, lumbosacral region (principal); M51.34 Other intervertebral disc degeneration, thoracic region; M51.36 Other intervertebral disc degeneration, lumbar region
CPT/HCPCS: 72114

== ENCOUNTER 2023-08-02 08:29 | Outpatient (CLI) | payer OTHER, SELFPAY ==
--- NOTE | ~2023-08-02 | US_ITS ---
Abdominal Sonogram: Real-time sonographic imaging of the abdomen was performed. Clinical History: Abnormal serum enzyme levels Findings: The liver appears echogenic, with no evidence of mass lesion or bile duct dilatation. Main portal vein demonstrates normal direction of flow. The spleen is normal in size without evidence of focal lesion. The gallbladder is absent, compatible prior cholecystectomy. The common bile duct regina ures 3 mm. The visualized pancreas, aorta, and IVC are unremarkable. The right kidney measures 11.2 cm in length and the left kidney measures 11.2 cm. There is no hydronephrosis or renal calculus. Impression: Diffuse fatty infiltration of liver. Status post cholecystectomy. Reviewed, dictated and finalized at location M. Impression: Diffuse fatty infiltration of liver. Status post cholecystectomy.
== END 2023-08-02 08:30 | disposition home or self-care (01) ==
PROVIDERS: PCP Family Medicine; Visit Provider Nurse Practitioner
DX: R74.8 Abnormal levels of other serum enzymes (principal); K76.0 Fatty (change of) liver, not elsewhere classified
CPT/HCPCS: 76700

== ENCOUNTER 2023-09-09 15:54 | Emergency (ER) | payer OTHER, SELFPAY ==
[2023-09-09 16:08] VITALS: BP 140/99; PULSE 89; RESP 20; TEMP 36.8; O2SAT 100
--- NOTE | 2023-09-09 16:41 | ED.FEMALEGU ---
HPI - Female Genitourinary General Chief complaint: Urogenital-Female Stated complaint: Urinary Problems Time Seen by Provider: 09/09/23 16:49 Source: patient, RN notes reviewed and old records reviewed Mode of arrival: ambulatory Limitations: no limitations History of Present Illness HPI Narrative: 32-year-old female presents to the [facility] with multiple complaints at 1st. Patient is complaining of a rash, body aches. States that she did see her primary care provider for her aches pains, had blood work done. Symptoms for 2-3 weeks. Was given penicillin and finish the penicillin 2 days ago. Comes in mostly for today for vaginal discharge, she describes it as being very thickened itchy. Denies any odor. Vaginal exam was offered, patient declined stating that she thinks it is just a yeast infection will send in a Diflucan for her. Discussed with patient that her other symptoms are most likely due to what is being worked up by her primary care provider in being referred to rheumatology. Related Data Home Medications Medication Instructions Recorded Confirmed cholecalciferol (vitamin D3) 1 tab-cap PO DAILY 02/12/22 09/09/23 Allergies Allergy/AdvReac Type Severity Reaction Status Date / Time No Known Allergies Allergy Verified 09/09/23 16:22 Review of Systems Review of Systems: All systems reviewed & are unremarkable except as noted in HPI and below Constitutional: Constitutional: Reports as per HPI and Reports body ache(s) Eyes: Eyes: Reports no additional eye complaints ENT: Reports system reviewed and no additional complaints, except as documented Cardiovascular: Cardiovascular: Reports no additional cardiovascular complaints, Denies chest pain and Denies dyspnea Respiratory: Respiratory: Reports no additional respiratory complaints, Denies chest congestion, Denies cough and Denies dyspnea Gastrointestinal: Gastrointestinal: Reports no additional gastrointestinal complaints, Denies abdominal pain, Denies nausea and Denies vomiting Genitourinary: Genitourinary: Reports as per HPI Musculoskeletal: Musculoskeletal: Reports no additional musculoskeletal complaints Integumentary/Breasts: Skin/Breast: Reports as per HPI Neurologic: Reports system reviewed and no additional complaints, except as documented Psychiatric: Psychiatric: Reports no additional psychiatric complaints Allergic/Immunologic: Allergic/Immunologic: Reports no additional allergic/immunologic complaints PMFSH Past Medical History Medical History Anxiety Depression Irritable bowel syndrome with alternating bowel habits Painful orthopaedic hardware Panic attacks Surgical History Surgical History H/O: section H/O: hysterectomy History of cholecystectomy History of fracture of right ankle ORIF right distal fibula with syndesmotic stabilization March 2020 Family History Family History Other Depression Diabetes mellitus Heart disease Hypertension Skin cancer Social History Social History Smoking status: Never smoker Alcohol intake: current Alcohol use details: occasional use Substance use: current Substance use type: marijuana Lack of Transportation: No Lack of Food: Never True Current Housing: I Have Housing Concerned About Future Housing: No Difficulty Paying Gas/Electric Bills: No Difficulty Paying for Meds: No Currently Unemployed: No Education: High School Diploma/GED Difficulty w/ Childcare or Family Care: No Living arrangements: with family Additional living arrangements comments: 2 sons live with her Occupation/Education: unemployed Gender identity (if verbalized by the patient): Female Spiritual care concerns: No Comments At the time of my sign
== END 2023-09-09 17:05 | disposition home or self-care (01) ==
PROVIDERS: Emergency Provider Nurse Practitioner; PCP Family Medicine
DX: B37.31 Acute candidiasis of vulva and vagina (principal); R21 Rash and other nonspecific skin eruption; F12.90 Cannabis use, unspecified, uncomplicated; F41.9 Anxiety disorder, unspecified; F32.A Depression, unspecified; F41.0 Panic disorder [episodic paroxysmal anxiety]
CPT/HCPCS: 99213; G0463

== ENCOUNTER 2023-09-21 21:40 | Emergency (ER) | payer OTHER, SELFPAY ==
--- NOTE | ~2023-09-21 | XR_ITS ---
EXAMINATION: XR chest 2V DATE: 09/21/2023 21:51 INDICATION: Chest pain TECHNIQUE: PA and lateral views of the chest were obtained. COMPARISON: Chest radiograph dated 06/27/2017 FINDINGS: The lungs remain clear with no focal airspace opacities, pulmonary edema, pleural effusion or pneumot horax. The cardiomediastinal silhouette is normal. Mild thoracic spondylosis. IMPRESSION: 1. No acute cardiopulmonary disease. Reviewed, dictated and finalized at location A.
--- NOTE | 2023-09-21 21:43 | ECG_ITS ---
Test Date: 2023-09-21 22:09:43 Measurements Intervals [place] Rate: 83 P: 49 VA: 132 QRS: 5 QRSD: 78 T: 21 QT: 339 QTc: 398 Interpretive Statements SINUS RHYTHM POSSIBLE LEFT ATRIAL ENLARGEMENT [-0.1mV P-WAVE IN V1/V2] DELAYED R-WAVE PROGRESSION ABNORMAL ECG No previous ECG available for comparison Electronically Signed On 09-22-2023 10:54:02 CDT by Timothy Parks M.D.
[2023-09-21 21:53] VITALS: BP 161/91; PULSE 94; RESP 20; TEMP 36.9; O2SAT 98
[2023-09-21 22:15] LABS: Basophils Absolute Auto 0.1 K/mm3 (0.0-0.1); Basophils Percent Auto 0.7 % (0.2-1.2); Eosinophils Absolute Auto 0.2 K/mm3 (0-0.3); Eosinophils Percent Auto 2.6 % (0-4.4); Hematocrit 39.7 % (37.0-47.0); Hemoglobin 14.2 g/dL (12.0-15.0); Immature Granulocyte Absolute 0.02 K/mm3 (0.00-0.031); Immature Granulocyte Percent A 0.3 % (0-0.5); Lymphocytes Absolute Auto 3.35 K/mm3 (0.9-3.2); Lymphocytes Percent Auto 46.1 % (18.3-44.2); Mean Corpuscular HGB Conc 35.8 g/dl (32-36); Mean Corpuscular Hemoglobin 30.2 pg (26-34); Mean Corpuscular Volume 84.5 fl (80-100); Mean Platelet Volume 10.5 fl (7.4-10.4); Monocytes Absolute Auto 0.4 K/mm3 (0.1-0.6); Monocytes Percent Auto 5.9 % (2.6-8.5); Neutrophils Absolute Auto 3.2 K/mm3 (1.3-6.7); Neutrophils Percent Auto 44.4 % (45.5-73.1); Platelet Count Result 252 k/mm3 (150-375); Red Cell Distribution Width 13.2 % (11.5-14.5); White Blood Count 7.3 K/mm3 (4.5-10.0)
[2023-09-21 22:24] LABS: Alanine Aminotransferase 62 U/L (6-35); Albumin Level 4.8 g/dL (3.5-5.1); Alkaline Phosphatase 88 U/L (38-126); Anion Gap 9 mmol/L (4-12); Aspartate Amino Transferase 40 U/L (14-36); Bilirubin,Total 0.8 mg/dL (0.2-1.3); Blood Urea Nitrogen 19 mg/dL (7-17); Calcium 9.8 mg/dL (8.4-10.2); Carbon Dioxide 26 mmol/L (22-30); Chloride 102 mmol/L (98-107); Estimated CRCL calculation 98 ml/min; Estimated Glomerular Filt Rate 57; Glucose 88 mg/dL (65-110); Lipase 230 U/L (23-300); Potassium 3.9 mmol/L (3.4-5.0); Sodium 137 mmol/L (137-145)
[2023-09-21 22:25] LABS: INR 0.9; Prothrombin Time 12.7 Seconds (11.1-14.7)
[2023-09-21 22:35] LABS: Troponin I < 0.012 ng/mL (0.000-0.034)
[2023-09-22 00:49] VITALS: BP 137/94; PULSE 81; RESP 17; O2SAT 99
[2023-09-22 01:00] LABS: Appearance Urine Clear (Clear); Bilirubin Urine Negative (Negative); Blood Urine Negative (Negative); Color Urine Yellow (Yellow); Glucose Urine UA Negative (Negative); Ketones Urine Trace mg/dL (Negative); Leukocyte Esterase Ur Negative LEU/UL (Negative); Nitrate Urine Negative (Negative); Protein Urine Negative (Negative); Specific Grav Ur 1.025 (1.001-1.035); Urobilinogen Urine 0.2 mg/dL (<2.0)
[2023-09-22 01:04] LABS: Add Urine Microscopic? NO
--- NOTE | 2023-09-22 01:07 | ED.GENADULT ---
HPI - General Adult General Chief complaint: Unspecified Stated complaint: trouble swallowing, heartburn Time Seen by Provider: 09/22/23 00:52 History of Present Illness HPI narrative: 33-year-old female with a history of IBS presents to the emergency department for heartburn and swollen tonsils . Patient states today she has been having heartburn which is not abnormal for her. States her upper in flares up which he eats tomatoes and acidic foods. States she had a pizza legible for lunch which made her heartburn worse. She also states she feels like her tonsils are swollen and she has been having difficulty catching her breath. She denies chest pain, cough or congestion, fever. States she had a sore throat a few weeks ago and was on an antibiotic, but found out later that she did not have strep throat. States she tested negative for mono at that time as well. She is reporting a generalized upset stomach and nausea but denies focal abdominal pain, dysuria or hematuria, diarrhea. She states she took [id number] Tums earlier today without improvement. Related Data Home Medications Medication Instructions Recorded Confirmed cholecalciferol (vitamin D3) 1 tab-cap PO DAILY 02/12/22 09/21/23 Allergies Allergy/AdvReac Type Severity Reaction Status Date / Time No Known Allergies Allergy Verified 09/21/23 21:43 Review of Systems Review of Systems: CONSTITUTIONAL: Denies fever, chills, or sweats. EYES: Denies visual changes, redness, or discharge. ENT: see HPI CARDIOVASCULAR: Denies chest pain, palpitations, or edema. RESPIRATORY: Denies cough or dyspnea. GASTROINTESTINAL: See HPI GENITOURINARY: Denies dysuria or hematuria. SKIN: Denies rash or itching. MUSCULOSKELETAL: Denies back pain, joint pain, or myalgia. NEUROLOGIC: Denies headache, numbness, or weakness. PSYCHIATRIC: Denies anxiety or depression. [facility] Past Medical History Medical History Anxiety Depression Irritable bowel syndrome with alternating bowel habits Painful orthopaedic hardware Panic attacks Surgical History Surgical History H/O: section H/O: hysterectomy History of cholecystectomy History of fracture of right ankle ORIF right distal fibula with syndesmotic stabilization March 2020 Family History Family History Other Depression Diabetes mellitus Heart disease Hypertension Skin cancer Social History Social History Smoking status: Never smoker Alcohol intake: current Alcohol use details: occasional use Substance use: current Substance use type: marijuana Lack of Transportation: No Lack of Food: Never True Current Housing: I Have Housing Concerned About Future Housing: No Difficulty Paying Gas/Electric Bills: No Difficulty Paying for Meds: No Currently Unemployed: No Education: High School Diploma/GED Difficulty w/ Childcare or Family Care: No Living arrangements: with family Additional living arrangements comments: 2 sons live with her Occupation/Education: unemployed Gender identity (if verbalized by the patient): Female Spiritual care concerns: No Exam Narrative: GENERAL: Well-appearing, well-nourished, and in no acute distress. HEAD: Normocephalic, atraumatic. EYES: PERRLA and EOMI. ENT: Nares clear, no rhinorrhea or epistaxis. Mucous membranes moist. bilateral TMs are roche nonbulging with normal canals. Posterior pharynx without erythema or edema. No tonsillar hypertrophy or exudates. Uvula is midline. No trismus. No airway compromise. NECK: Supple. CHEST: Clear to auscultation. No respiratory distress. Speaking in full sentences and satting 99% on room air. HEART: Regular rate and rhythm. No murmur heard. Normal peripher
[2023-09-22] MEDS: FAMOTIDINE 20 MG TABLET PO (01:50)
[2023-09-22] MEDS: BELLADONNA ALK/PHENOB ELIX 10 ML, MAG HYDROX/ALUMINUM HYD/SIMETH 30 ML, LIDOCAINE HCL 2... PO (01:50)
[2023-09-22] MEDS: ONDANSETRON HCL ODT 4 MG TABLET PO (01:50)
[2023-09-22 02:10] VITALS: BP 127/86; PULSE 82; RESP 16; O2SAT 98
[2023-09-22 02:50] LABS: Troponin I < 0.012 ng/mL (0.000-0.034)
[2023-09-22 03:05] VITALS: BP 124/88; PULSE 76; RESP 15; O2SAT 98
[2023-09-22 03:27] LABS: Influenza A QL RT-PCR Negative (Negative); Influenza B QL RT-PCR Negative (Negative); SARS-CoV-2 RNA PCR Negative (Negative); Strep Group A RT-PCR NOT DETECTED (Negative)
[2023-09-22 03:30] LABS: Monoscreen Negative (Negative); Negative Monotest Control Negative (Negative); Positive Monotest Control Positive (Positive)
== END 2023-09-22 03:07 | disposition home or self-care (01) ==
PROVIDERS: Emergency Medicine; Emergency Provider Physician Assistant; PCP Family Medicine
DX: R12 Heartburn (principal); Z20.822 Contact with and (suspected) exposure to COVID-19; K58.2 Mixed irritable bowel syndrome; F41.9 Anxiety disorder, unspecified; F32.A Depression, unspecified; Z90.710 Acquired absence of both cervix and uterus; Z90.49 Acquired absence of other specified parts of digestive tract; Z79.899 Other long term (current) drug therapy
CPT/HCPCS: 36415; 71046; 80053; 81003; 83690; 84484; 85025; 85610; 85730; 86308; 87636; 87651; 93005; 99284; A9270

== ENCOUNTER 2024-09-03 17:10 | Emergency (ER) | payer OTHER, SELFPAY ==
--- NOTE | 2024-09-03 17:17 | ED_ITS ---
HPI - Female Genitourinary General Chief complaint: Urogenital-Female Stated complaint: STD Time Seen by Provider: 09/03/24 17:20 Source: patient, RN notes reviewed and old records reviewed Mode of arrival: ambulatory Limitations: no limitations History of Present Illness HPI Narrative: 33-year-old female presents to the [facility] with possible concerns for STDs. States that she did sleep with a new partner, unprotected sex. States that she noticed blood on her toilet paper when she wiped. States she has had lower abdominal cramping but no abdominal pain. Denies fever. Onset (ago): day(s) (4) Related Data Home Medications ?Medication ?Instructions ?Recorded ?Confirmed ?Last Taken ?Type cholecalciferol (vitamin D3) 1 tab-cap PO DAILY 02/12/22 05/01/24 Unknown History duloxetine 60 mg capsule,delayed mg PO 09/03/24 Unknown History release Allergies Allergy/AdvReac Type Severity Reaction Status Date / Time No Known Allergies Allergy Verified 09/03/24 17:11 Review of Systems Review of Systems: All systems reviewed & are unremarkable except as noted in HPI and below Constitutional: Constitutional: Reports no additional constitutional complaints ENT: Reports system reviewed and no additional complaints, except as documented Cardiovascular: Cardiovascular: Reports no additional cardiovascular complaints, Denies chest pain and Denies dyspnea Respiratory: Respiratory: Reports no additional respiratory complaints, Denies chest congestion, Denies cough and Denies dyspnea Genitourinary: Genitourinary: Reports as per HPI Musculoskeletal: Musculoskeletal: Reports no additional musculoskeletal complaints Integumentary/Breasts: Skin/Breast: Reports system reviewed and no additional complaints, except as docu PMFSH Past Medical History Medical History GERD (gastroesophageal reflux disease) Fatty liver Painful orthopaedic hardware Irritable bowel syndrome with alternating bowel habits Panic attacks Anxiety Depression Surgical History Surgical History History of fracture of right ankle ORIF right distal fibula with syndesmotic stabilization March 2020 History of cholecystectomy H/O: hysterectomy H/O: section Family History Family History Other Depression Diabetes mellitus Heart disease Hypertension Skin cancer Social History Social History Smoking status: Never smoker Alcohol intake: current Alcohol use details: occasional use Substance use: current Substance use type: marijuana Lack of Transportation: No Lack of Food: Never True Current Housing: I Have Housing Concerned About Future Housing: No Difficulty Paying Gas/Electric Bills: No Difficulty Paying for Meds: No Currently Unemployed: No Education: High School Diploma/GED Difficulty w/ Childcare or Family Care: No Living arrangements: with family Additional living arrangements comments: 2 sons live with her Occupation/Education: unemployed Gender identity (if verbalized by the patient): Female Spiritual care concerns: No Comments At the time of my signature, I reviewed and agree with the nursing past medical, surgical, social, and family history. There is no relevant family history pertinent to the patient complaint. Exam Const: General: cooperative, healthy appearing, comfortable, no acute distress, well developed, alert and well nourished Nutritional Appearance: well nourished Orientation/consciousness: patient oriented x3 Limitations: no limitations HENMT: Head: normal to inspection Eyes: General: appearance normal, both eyes and all related structures Alignment and Position: alignment normal Neck: Neck: normal visual inspection, full ROM, no lymphadenopathy and no meningeal signs Chest: Chest palpation & inspection: normal inspection of the chest Resp: Effort & Inspection: normal respiratory effort and able to speak in complete sentences Auscultation: clear to auscultation bilaterally, no crackles, no rales, no rhonchi and no wheezes Cardio: Rate: regular rate GI: GI Palp: No abdominal tenderness : General: Yes no CVA tenderness External Female Exam: normal external appearance Speculum Exam - Vagina: abnormal vaginal discharge white; not caseous and not yellow, no cysts, not erythematous, no lesions and No vaginal bleeding Other: Chaperoned by Mily ROBLERO Skin: General skin exam: normal color and no rashes or lesions noted Neuro: General: patient oriented x3, gait normal, moves all extremities and no meningeal signs Cognition (Neuro): normal cognition Speech: normal speech Gait exam (Neuro): Normal gait present Extrem: General: normal to inspection, full ROM, capillary refill normal and normal gait Psych: Appearance: grossly normal and well kempt Mental Status: mental status grossly normal Speech and movement: Normal speech and movement present and Clear speech present Affect: normal affect Attitude: cooperative Course Course Level of Care: Express Care Visit Vital Signs Vital signs: Vital Signs Temperature 99.1 F 09/03/24 17:19 Pulse Rate 117 H 09/03/24 17:19 Respiratory Rate 16 09/03/24 17:19 Blood Pressure 145/85 H 09/03/24 17:19 Pulse Oximetry 100 09/03/24 17:19 Oxygen Delivery Room Air 09/03/24 17:19 Temperature 99.1 F 09/03/24 17:19 Pulse Rate 117 H 09/03/24 17:19 Respiratory Rate 16 09/03/24 17:19 Blood Pressure 145/85 H 09/03/24 17:19 Pulse Oximetry 100 09/03/24 17:19 Oxygen Delivery Room Air 09/03/24 17:19 Reviewed MDM - Female Genitourinary MDM Narrative Medical decision making narrative: Patient sitting in exam room. Patient is nontoxic, vitals are stable. Patient presents with vaginal discharge, concerns for blood when she wipes when urinating. Patient tested for UTI, chlamydia, gonorrhea Trichomonas. Exam most consistent for BV Patient appropriate outpatient treatment with close follow Differential Diagnosis Differential diagnosis: Likely urinary tract infection, bacterial vaginosis, trichomoniasis and cervicitis Lab Data Labs: Lab Results 09/03/24 09/03/24 Range/Units 17:33 17:36 POC Urine Color Yellow POC Urine Clarity Clear POC Urine pH 6.5 POC Ur Specif [place] 1.020 POC Urine Protein 1+ (Negative) POC Ur Glucose (UA) Negative (Negative) POC Urine Ketones Negative (Negative) POC Urine Blood Trace (Negative) POC Urine Nitrite Negative (Negative) POC Urine Bilirubin Negative (Negative) POC Urine Urobilinogen 0.2 POC U Leukocyte Esteras 2+ (Negative) C. trachomatis (PCR) Pending N. gonorrhoeae (PCR) Pending T. vaginalis (PCR) Pending Bact Vaginosis Panel Pending Reviewed Critical Care Time Critical Care Time Critical Care Time: No Discharge Plan Discharge Clinical Impression: Symptomatic urinary tract infection, Bacterial vaginitis Patient Disposition: Home Condition: Stable Instructions: Bacterial Vaginosis (ED), Urinary Tract Infection in Women (DC) Additional Instructions: Today you have been tested for chlamydia, gonorrhea and Trichomonas. If they are positive we will notify you. If they are positive we do recommend following up with your photonics engineer wear your primary care provider for further evaluation. Today your blood pressure was 145/85. Please follow-up with primary care provider for further evaluation Take antibiotics as prescribed Follow-up with primary care provider Follow-up with photonics engineer provider as needed For new or worsening symptoms go directly to the emergency room Patient Language: Vietnamese Prescriptions: New metronidazole 500 mg tablet 500 mg PO Q12H Qty: 14 0RF amoxicillin-pot clavulanate 875-125 mg tablet 1 tablet PO Q12H 5 Days Qty: 10 0RF No Action cholecalciferol (vitamin D3) 1 tab-cap PO DAILY duloxetine 60 mg capsule,delayed release(DR/EC) PO omeprazole 20 mg capsule,delayed release(DR/EC) 20 mg PO DAILY Qty: 90 2RF Rx Instructions: take first thing in the morning on an empty stomach bupropion HCl 150 mg tablet extended release 24 hr See Rx Instructions .ROUTE .COMPLEX Qty: 90 1RF Dose Instruction: TAKE 1 TABLET(150 MG) BY MOUTH EVERY MORNING Rx Instructions: TAKE 1 TABLET(150 MG) BY MOUTH EVERY MORNING ondansetron 4 mg tablet,disintegrating 4 mg PO Q8H Qty: 14 0RF omega 7-hyd-ein-fish oil [Fish Oil] 1,000 mg (120 mg-180 mg) capsule 1 cap PO DAILY Qty: 90 1RF buspirone 5 mg tablet See Rx Instructions .ROUTE .COMPLEX Qty: 60 0RF Dose Instruction: TAKE 1 TABLET BY MOUTH TWICE DAILY Rx Instructions: TAKE 1 TABLET BY MOUTH TWICE DAILY atorvastatin 20 mg tablet 20 mg PO DAILY Qty: 90 1RF Follow-up/Referrals: Raisa Torres NP-C [Primary Care Provider] - 1 Week ([facility] care follow up ) Time of Disposition: 17:40
[2024-09-03 17:19] VITALS: BP 145/85; PULSE 117; RESP 16; TEMP 37.3; O2SAT 100
[2024-09-03 17:35] LABS: EDUAAPPEAR Clear; EDUABILI Negative (Negative); EDUABLOOD Trace (Negative); EDUACOLOR1 Yellow; EDUAGLUCOSE Negative (Negative); EDUAKETONE Negative (Negative); EDUALEUKO 2+ (Negative); EDUANITRATE Negative (Negative); EDUAPH 6.5; EDUAPROTEIN 1+ (Negative); EDUAUROBILI 0.2
[2024-09-03 22:31] LABS: Trichomonas Vag PCR DETECTED (NOT DETECTE)
[2024-09-03 23:05] LABS: Chlamydia trachomatis NOT DETECTED (NOT DETECTE); Neisseria gonorrhoeae PCR NOT DETECTED (NOT DETECTE)
[2024-09-05 11:08] LABS: Bacterial Vaginosis POSITIVE (NEGATIVE)
== END 2024-09-03 17:50 | disposition home or self-care (01) ==
PROVIDERS: Emergency Provider Nurse Practitioner; PCP Nurse Practitioner
DX: N39.0 Urinary tract infection, site not specified (principal); N76.0 Acute vaginitis; Z20.822 Contact with and (suspected) exposure to COVID-19; F12.90 Cannabis use, unspecified, uncomplicated; K21.9 Gastro-esophageal reflux disease without esophagitis; K76.0 Fatty (change of) liver, not elsewhere classified
CPT/HCPCS: 81003; 81513; 87086; 87491; 87591; 87661; 99213; G0463

== ENCOUNTER 2024-10-21 10:08 | Outpatient (CLI) | payer OTHER, SELFPAY ==
--- OUTSIDE RECORDS SUMMARY | 2024-10-21 10:19 | XMS_ITS | Patient Health Record ---
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 Please fill on or after October 07, 2022.; Duration: 30 days 08/16/2022 Active Spironolactone Not-T aking buPROPion HCl ER (XL) 300 MG 1 tablet in the morning Orally Once a day; Duration: 90 days Active Concerta 18 MG 2 tablet in the morning Orally Once a day; Duration: 7 days 04/22/2022 Not-Taking buPROPion HCl ER (XL) 300 MG 1 tablet in the morning Orally Once a day; Duration: 30 days 09/01/2021 Active Methylphenidate HCl 20 MG 1.5 tablet on an empty stomach Orally Twice a day; Duration: 30 days 08/16/2022 Active Propranolol HCl 10 MG 1 tablet Orally Twice a day as needed for anxiety; Duration: 90 days 09/01/2021 Active Methylphenidate HCl 20 MG 1.5 tablet on an empty stomach Orally Twice a day. Please fill on or after September 11, 2022.; Duration: 30 days 08/16/2022 Active Sertraline HCl 100 MG 1 tablet Orally Once a day; Duration: 30 days Please remind client to make f/u apt soon. 30 day supply until seen. Active Social History Tobacco Use: Social History Observation Description Date Details (start date - stop date) Never Smoker NA - NA Dont use, Tobacco Use/Smoking Question Answer Notes Are you a nonsmoker Problems Problem Type SNOMED Code ICD Code Onset Dates Problem Status W/U Status Risk Notes Problem Attention deficit hyperactivity disorder (788974920) ADHD (attention deficit hyperactivity disorder), combined type (F90.2) Active confirmed Problem Generalized anxiety disorder (70730544) NARCISA (generalized anxiety disorder) (F41.1) Active confirmed Problem Moderate recurrent major depression (00244582) Major depressive disorder, recurrent episode, moderate (F33.1) Active confirmed Problem Poor concentration (finding) (16830420) Concentration deficit (R41.840) Active confirmed Encounters Encounter Location Date Provider Diagnosis [address] [place] [address] 09/30/2024 Owen Montoya Plan Of Treatment No Information Insurance Providers Payer Name Payer Address Payer Phone Subscriber Number Group Number Insured Name Patient Relationship to Insured Coverage Start Date Coverage End Date [address] [phone] [id number] Guillermo Da Silva Self - patient is the insured 3 [facility] Claims Department [address] [place] [address] [id number] Guillermo Da Silva Self - patient is the insured 2 [facility] Claims Department [address] [place] [address] [id number] Guillermo Da Silva Self - patient is the insured 2 Medical (General) History Medical History History ICD Code endometriosis chronic pelvic RLQ pain Surgical History Surgery Date(Month/Year) Hysterectomy 2017 Ovarian cyst removal (several surgeries) right ankle surgeries with hardware s/p falling 03/23 and 04/24 c-sections x2 gall bladder removal Hospitalization History Reason Date(Month/Year)
--- NOTE | 2024-10-21 10:20 | ECG_ITS ---
Test Date: 2024-10-21 10:36:57 Measurements Intervals [place] Rate: 81 P: 42 SC: 143 QRS: 8 QRSD: 89 T: -2 QT: 354 QTc: 411 Interpretive Statements SINUS RHYTHM POSSIBLE ANTERIOR MYOCARDIAL INFARCTION [30 ms Q WAVE IN V3/V4, OR R < 0.2 mV IN V4], PROBABLY OLD Compared to ECG 09/21/2023 22:09:43 Myocardial infarct finding now present Electronically Signed On 10-21-2024 11:28:56 CDT by Tadeo Maurer M.D.
== END 2024-10-21 10:09 | disposition home or self-care (01) ==
LOC: ANHSURGERY 10:11
PROVIDERS: PCP Family Medicine; Visit Provider Obstetrics & Gynecology
DX: E78.2 Mixed hyperlipidemia (principal); Z01.818 Encounter for other preprocedural examination
CPT/HCPCS: 36415; 86850; 86900; 86901; 93005

== ENCOUNTER 2024-10-25 00:21 | Day surgery (SDC) | payer OTHER, SELFPAY ==
[2024-10-17 18:39] VITALS: BMI 41.8
--- NOTE | 2024-10-17 18:47 | SUR.PREOP ---
Report to the Outpatient Waiting Room, entrance under the green pavilion located off [facility], at time ___629____ on date ___[id number]____. Planned Procedure Time: .? Time changes happen often and if your time is changed the preop area will call you the afternoon before. - You and your visitor will be asked to self-screen and do not enter if you have any COVID symptoms. Please call surgeon if you need to reschedule. - A mask is optional within the hospital at this time. Patients may have clear liquids (water, carbonated beverages, clear teas, apple juice) until 3 hours prior to surgery with a maximum of 20 ounces. - No food from midnight until time of surgery and no smoking, or chewing tobacco (or any form of nicotine). No chewing gum, candy or mints. - Infants may have breast milk until 4 hours before surgery, formula 6 hours prior to surgery. - Children will be allowed to drink immediately following surgery.? If applicable, please bring a bottle or sippy cup to assist with drinking. Juice, water, soda, and popsicles are readily available.? For infants on formula, please bring formula the day of surgery.? Pacifiers are allowed. Take only the following medications with a SIP of water on the morning of surgery: Bupropion, Duloxetine, _Valacyclovir DO NOT STOP ANY OF YOUR OTHER PRESCRIPTION MEDICATIONS PRIOR TO SURGERY EXCEPT THE FOLLOWING Hold all vitamins and supplements for 3 days per anesthesiologist. Medications to discontinue per physician NA Date to take last dose NA Please no make-up, nail [place] af[place], hairspray, perfume, deodorant, or body powder the day of surgery.? No jewelry (including any body piercings) or valuables the day of surgery, leave them at home.? Please take a shower or bath the night before, or the morning of, surgery with an antibacterial soap.? Wear comfortable, loose fitting clothing.? Children are encouraged to wear pajamas. - Jewelry must be removed prior to entering the operating room.? Rings and piercings that are not removed may be cut off. - The hospital will not accept responsibility for valuables.? - Please leave all valuables, including medications, at home the day of surgery. If you are going home after surgery, a licensed driver trainer must drive you home.? - NO public transportation without another adult if you receive anesthesia. - We recommend that an adult stay with you for 24 hours following discharge. - We also recommend that you do not drive, make important decision, drink alcoholic beverages, or take any drugs that were not prescribed by your health care provider for at least 24 hours after your discharge time. For Pediatric surgeries, we recommend two adults accompany the child home. Follow any additional instructions given to you from your surgeon. Telephone instructions given to Guillermo and asked if any additional questions and then verbalized understanding. Patient advised to call surgeon office or pre surgery nurse liaison [phone] if any additional questions.
--- NOTE | 2024-10-22 12:44 | P.HP_ITS ---
H&P: HPI History of Present Illness Date/Time: 10/22/24 12:44 Chief Complaint: Right ovarian cyst pain Narrative: This is a 34-year-old status post hysterectomy for right ovarian cystectomy possible right salpingo-oophorectomy secondary to severe pelvic pain and a complex right ovarian cyst. Risks and benefits of the procedure reviewed including but not exclusive of , aspiration pneumonia, bleeding, samayoa sfusion, perforation injury to bowel, bladder, ureters, or other internal organs with need for open laparotomy. She received the ACOG handout entitled laparoscopy. She had all questions answered. She asked to proceed. Review of Systems Review of Systems: All systems reviewed & are unremarkable except as noted in HPI and below Constitutional: Constitutional: Reports no additional constitutional complaints ENT: Reports system reviewed and no additional complaints, except as documented Cardiovascular: Cardiovascular: Reports no additional cardiovascular complaints, Denies chest pain and Denies dyspnea Respiratory: Respiratory: Reports no additional respiratory complaints, Denies chest congestion, Denies cough and Denies dyspnea Genitourinary: Genitourinary: Reports as per HPI Musculoskeletal: Musculoskeletal: Reports no additional musculoskeletal complaints Integumentary/Breasts: Skin/Breast: Reports system reviewed and no additional complaints, except as docu PMFSH Past Medical History Medical History GERD (gastroesophageal reflux disease) Fatty liver Painful orthopaedic hardware Irritable bowel syndrome with alternating bowel habits Panic attacks Anxiety Depression Surgical History Surgical History History of fracture of right ankle ORIF right distal fibula with syndesmotic stabilization March 2020 History of cholecystectomy H/O: hysterectomy H/O: section Family History Family History Other Depression Diabetes mellitus Heart disease Hypertension Skin cancer Social History Social History Smoking status: Never smoker Alcohol intake: current Alcohol use details: occasional use Substance use: current Substance use type: marijuana Last use: 04-18-2024 Lack of Transportation: No Lack of Food: Never True Current Housing: I Have Housing Concerned About Future Housing: No Difficulty Paying Gas/Electric Bills: No Difficulty Paying for Meds: No Currently Unemployed: No Education: High School Diploma/GED Difficulty w/ Childcare or Family Care: No Living arrangements: with family Additional living arrangements comments: children Occupation/Education: unemployed Gender identity (if verbalized by the patient): Female Spiritual care concerns: No Meds Home Medications and Allergies Home Medications ?Medication ?Instructions ?Recorded ?Confirmed ?Type ondansetron 4 mg disintegrating 4 mg PO Q8H #14 tabs 05/01/24 10/17/24 Rx tablet bupropion HCl 150 mg 24 hr tablet, See Rx Instructions .Route 09/10/24 10/17/24 Rx extended release .COMPLEX #90 tabs duloxetine 60 mg capsule,delayed 60 mg PO DAILY 09/10/24 10/17/24 History release cholecalciferol (vitamin D3) 25 25 mcg PO DAILY #90 tabs 09/26/24 10/17/24 Rx mcg (1,000 unit) tablet omeprazole 20 mg capsule,delayed 20 mg PO DAILY #90 caps 09/26/24 10/17/24 Rx release atorvastatin 20 mg tablet 20 mg PO QPM 10/17/24 10/17/24 History omega 5-zrp-yjl-fish oil 1,000 mg 1 cap PO DAILY 10/17/24 10/17/24 History (120 mg-180 mg) capsule (Fish Oil) spironolactone 50 mg tablet 50 mg PO HS 10/17/24 10/17/24 History valacyclovir 500 mg tablet 500 mg PO DAILY 10/17/24 10/17/24 History Allergies Allergy/AdvReac Type Severity Reaction Status Date / Time No Known Allergies Allergy Verified 10/17/24 18:25 Exam Const: General: cooperative, healthy appearing and comfortable Nutritional Appearance: overweight Orientation/consciousness: oriented to person, oriented to place and oriented to time HENMT: Head: normal to inspection Resp: Effort & Inspection: normal respiratory effort Cardio: Rate: regular rate Rhythm: regular rhythm Heart sounds: S1 normal heart sound present and S2 normal heart sound present GI: Inspection: normal to inspection : Speculum Exam - Vagina: normal appearance of the vagina Speculum Exam - Cervix: Cervix absent Bimanual exam- vagina & uterus: uterus absent Bimanual Exam- Adnexa, other: tender on the right Assessment and Plan Assessment and plan (1) Pelvic pain: Code(s): R10.2 - Pelvic and perineal pain Status: Acute (2) Right ovarian cyst: Code(s): N83.201 - Unspecified ovarian cyst, right side Status: Acute Plan Will proceed with laparoscopy and ovarian cystectomy possible right salpingo- oophorectomy
[2024-10-25] VITALS (10 sets, daily range): BP systolic 126–145; BP diastolic 71–95; PULSE 81–94; RESP 11–20; TEMP 36.2–36.8; O2SAT 93–100
--- OUTSIDE RECORDS SUMMARY | 2024-10-25 00:25 | XMS_ITS | Patient Health Record ---
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 Role Phone Owen Montoya Primary Care [...] Risk Notes Problem Attention deficit hyperactivity disorder (375452827) ADHD (attention deficit hyperactivity disorder), combined type (F90.2) Active confirmed Problem Generalized anxiety disorder (07516745) NARCISA (generalized anxiety disorder) (F41.1) Active confirmed Problem Moderate recurrent major depression (39497708) Major depressive disorder, recurrent episode, moderate (F33.1) Active confirmed Problem Concentration deficit (R41.840) Active confirmed Encounters Encounter Location Date Provider Diagnosis [address] [address] 09/30/2024 Owen Montoya Plan Of Treatment No Information Insurance Providers Payer Name Payer Address Payer Phone Subscriber Number Group Number Insured Name Patient Relationship to Insured Coverage Start Date Coverage End Date [address] [address] [id number] Guillermo Da Silva Self - patient is the insured 3 [facility] Claims Department [address] [address] [phone] [id number] Guillermo Da Silva Self - patient is the insured [address] [facility] Claims Department [address] [address] [phone] [id number] Beverley bocanegra Guillermo Self - patient is the insured 2 Medical (General) History Medical History History ICD Code endometriosis chronic pelvic RLQ pain Surgical History Surgery Date(Month/Year) Hysterectomy 2017 Ovarian cyst removal (several surgeries) right ankle surgeries with hardware s/p falling 03/23 and 04/24 c-sections x2 gall bladder removal Hospitalization History Reason Date(Month/Year)
--- NOTE | 2024-10-25 06:37 | WPDHPUPDATE1 ---
History and Physical Update Update Date/Time: 10/25/24 06:37 History and Physical has been reviewed, including an updated exam of the patient. There are NO changes in the patient's condition. Risks, benefits, and alternatives have been discussed and questions answered. Patient agrees to proceed with procedure.
[2024-10-25] MEDS: ACETAMINOPHEN 500 MG TABLET 1000 MG PO (07:15)
[2024-10-25] MEDS: KETOROLAC 15 MG/ML VIAL (*BKC) IV PUSH (07:15)
[2024-10-25] MEDS: LACTATED RINGERS 1,000 ML 30 ML IV CONT ×2 (07:15→08:40)
--- NOTE | 2024-10-25 07:56 | P.PNAN_ITS ---
Anes - Initial Pre Proc Eval Procedure: Operation Date: 10/25/24 08:30 Proposed Procedures p Laparoscopic Right Ovarian Cystectomy, Possible Right Salpingo-Oophorectomy - Wicho Wheatley MD Date/Time: 10/25/24 07:56 Surgeon: Wicho Wheatley MD Pre Op Diagnosis: rt ovarian cyst, pelvic pain Patient Data Age: 34 Gender: F Height: 1.8 m Weight: 136 kg Allergies Allergy/AdvReac Type Severity Reaction Status Date / Time No Known Allergies Allergy Verified 10/17/24 18:25 Home Medications ?Medication ?Instructions ?Recorded ?Confirmed ?Type ondansetron 4 mg disintegrating 4 mg PO Q8H #14 tabs 05/01/24 10/17/24 Rx tablet bupropion HCl 150 mg 24 hr tablet, See Rx Instructions .Route 09/10/24 10/17/24 Rx extended release .COMPLEX #90 tabs duloxetine 60 mg capsule,delayed 60 mg PO DAILY 09/10/24 10/17/24 History release cholecalciferol (vitamin D3) 25 25 mcg PO DAILY #90 tabs 09/26/24 10/17/24 Rx mcg (1,000 unit) tablet omeprazole 20 mg capsule,delayed 20 mg PO DAILY #90 caps 09/26/24 10/17/24 Rx release atorvastatin 20 mg tablet 20 mg PO QPM 10/17/24 10/17/24 History omega 6-pzk-kse-fish oil 1,000 mg 1 cap PO DAILY 10/17/24 10/17/24 History (120 mg-180 mg) capsule (Fish Oil) spironolactone 50 mg tablet 50 mg PO HS 10/17/24 10/17/24 History valacyclovir 500 mg tablet 500 mg PO DAILY 10/17/24 10/17/24 History hydrocodone 5 mg-acetaminophen 325 1 tablet PO Q4H PRN pain #20 tabs 10/25/24 Rx mg tablet Patient hx anesthesia problems: none Family hx anesthesia problems: none Results Review: All pre-operative results and documents have been reviewed as part of the pre- operative evaluation. [facility] Past Medical History Medical History GERD (gastroesophageal reflux disease) Fatty liver Painful orthopaedic hardware Irritable bowel syndrome with alternating bowel habits Panic attacks Anxiety Depression Surgical History Surgical History History of fracture of right ankle ORIF right distal fibula with syndesmotic stabilization March 2020 History of cholecystectomy H/O: hysterectomy H/O: section Family History Family History Other Depression Diabetes mellitus Heart disease Hypertension Skin cancer Social History Social History Smoking status: Never smoker Alcohol intake: current Alcohol use details: occasional use Substance use: current Substance use type: marijuana Last use: 04-18-2024 Lack of Transportation: No Lack of Food: Never True Current Housing: I Have Housing Concerned About Future Housing: No Difficulty Paying Gas/Electric Bills: No Difficulty Paying for Meds: No Currently Unemployed: No Education: High School Diploma/GED Difficulty w/ Childcare or Family Care: No Living arrangements: with family Additional living arrangements comments: children Occupation/Education: unemployed Gender identity (if verbalized by the patient): Female Spiritual care concerns: No Anes - Eval Final PreProcedure Day of Procedure 10/25/24 07:56 Patient weight: morbidly obese Heart: regular rate and rhythm Lungs: clear to auscultation Airway: Mallampati scale class II Neurological: alert and oriented Last oral intake: >/= 8 hours ASA classification: III Emergent: no Anesthetic plan: proceed Anesthesia type and monitoring: general ETT and standard monitoring Results Review: All pre-operative results and documents have been reviewed as part of the pre- operative evaluation. Informed Consent: The patient's anesthetic plan and its attendant risks and benefits were discussed with the patient/family/POA. Questions were solicited and answers provided to the satisfaction of the patient/family/POA.
--- NOTE | 2024-10-25 08:35 | P.OP_ITS ---
Procedure Note - Detailed Date of Procedure 10/25/24 Pre-op Diagnosis rt ovarian cyst, pelvic pain Post-op Diagnosis Other (Pelvic pain/endometriosis/left ovarian cyst) Procedure Performed Laparoscopy with destruction left ovarian cyst and destruction endometriosis Surgeon Wicho Wheatley MD Anesthesia General Indications 34-year-old female status post hysterectomy and right salpingo-oophorectomy with pelvic pain Findings Uterus right ovary and tube absent. Endometriosis ovarian fossa. Moderate- sized left ovarian cyst. Uterus was surgically Description of Procedure Patient was prepped and draped in the normal sterile fashion placed in dorsal position. Under excellent general trach anesthesia sponge stick was placed in the vagina and the bladder drained of clear urine. The weighted speculum was r emoved and the gloves were changed. A supraumbilical incision made the Veress needle passed in the abdomen. Abdomen filled with CO2 gas [id number]. The 5mm trocar advanced under direct visualizatio n assuring no injury. Patient placed in Trendelenburg and a suprapubic incision made. The 5mm trocar advanced under direct visualization assuring no injury. The right ovary tube were surgically absent as was uterus. There were some adhesions in the right ovarian fossa these were sharply dissected away small areas of endometriosis were seen and these were cauterized monopolar cautery at 35 w per 2nd. Moderate-sized last over left ovarian cyst was seen in this was drained of clear fluid and irrigated. Pelvis was clear at that point the appendix appeared within normal limits. Liver appeared within normal limits as well. The lower site removed. The gas removed from the abdomen. The upper site removed. The incisions closed with 4 Monocryl glue. Patient was awakened went recovery in satisfactory condition. All sponge, needle, instrument counts were correct. There were no immediate complications Estimated Blood Loss 5 Drains No Packing No Pathology None sent Complications No immediate complications Condition Stable Disposition PACU
== END 2024-10-25 10:36 | disposition home or self-care (01) ==
PROVIDERS: PCP Family Medicine; Visit Provider Obstetrics & Gynecology
PROC: (CPT 49320; principal; 2024-10-25 08:30)
DX: N83.202 Unspecified ovarian cyst, left side (principal); N80.351 Endometriosis of the right pelvic sidewall, unspecified depth; R10.2 Pelvic and perineal pain; Z90.710 Acquired absence of both cervix and uterus; F12.90 Cannabis use, unspecified, uncomplicated; E66.01 Morbid (severe) obesity due to excess calories; Z68.41 Body mass index [BMI] 40.0-44.9, adult
CPT/HCPCS: 58662; A9270; J0330; J1100; J1885; J2003; J2250; J2405; J2704; J3010; J7120